=== PATIENT | male | born 1955 | race Caucasian/White ===

== ENCOUNTER 2019-05-18 11:43 | Emergency (ER) | payer OTHER ==
[2019-05-18 11:49] VITALS: BMI 34.7
--- NOTE | 2019-05-18 13:10 | PDOC ---
History of Present Illness - General History Source: Patient Exam Limitations: No Limitations - History of Present Illness Initial Comments: 05/18/19 13:06 Pt is a 63 y/o male who presents to the ED with complaint of b/l leg swelling that has been ongoing for the last 3 years. The patient states that he is on a water pill and other heart medications. 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 Terry, in [place] whom he has not seen for about a year. He states that he also has swelling on his abdomen. He denies any shortness of breath. He has been urinating normally. The patient states that he is concerned about his leg swelling. He denies any chest pain or weakness. 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 He denies any other complaints at this time. <Corinne Junior - Last Filed: 05/18/19 14:31> <Robert Tomas - Last Filed: 05/18/19 15:57> - General Chief Complaint: Edema Stated Complaint: LEG PAIN Time Seen by Provider: 05/18/19 12:11 Past History - Past Medical History COPD: No Diabetes: Yes HTN: Yes Hypercholesterolemia: Yes - Psycho Social/Smoking Cessation Hx Smoking History: Never smoked <Corinne Junior - Last Filed: 05/18/19 14:31> <Robert Tomas - Last Filed: 05/18/19 15:57> - Past Medical History Allergies/Adverse Reactions: Allergies Allergy/AdvReac Type Severity Reaction Status Date / Time No Known Allergies Allergy Verified 05/18/19 11:49 Home Medications: Ambulatory Orders Carvedilol 6.25 mg PO BID 05/18/19 Enalapril Maleate [Vasotec -] 10 mg PO DAILY 05/18/19 Furosemide 20 mg PO DAILY 05/18/19 Levothyroxine [Synthroid -] 25 mcg PO DAILY 05/18/19 Metformin HCl [Glucophage] 1,000 mg PO BID 05/18/19 Review of Systems - Review of Systems Constitutional: No: Chills, Fever, Malaise, Weakness Respiratory: No: Cough, Shortness of Breath, SOB at Rest, Wheezing, Productive cough, Hemoptysis Cardiac (ROS): Yes: Edema. No: Chest Pain, Irregular Heart Rate, Lightheadedness, Palpitations, Syncope, Chest Tightness ABD/GI: Yes: Other. No: Abdominal Distended, Nausea, Vomiting, Abdominal cramping : Yes: Testicular Swelling Musculoskeletal: No: Back Pain, Muscle Pain Integumentary: No: Change in Color, Erythema, Rash Neurological: No: Headache, Numbness, Tingling, Weakness <Sandi,Corinne D - Last Filed: 05/18/19 14:31> *Physical Exam - Vital Signs Last Vital Signs Temp Pulse Resp BP Pulse Ox 98.2 F 100 H 18 175/107 H 98 05/18/19 11:45 05/18/19 11:45 05/18/19 11:45 05/18/19 11:45 05/18/19 11:45 - Physical Exam General Appearance: Yes: Appropriately Dressed, Obese. No: Apparent Distress HEENT: positive: EOMI Neck: negative: Decreased range of motion Respiratory/Chest: positive: Rales (Fine rales b/l bases). negative: Chest Tender, Respiratory Distress, Accessory Muscle Use, Labored Respiration, Decreased Breath Sounds, Rhonchi, Stridor, Wheezing Cardiovascular: positive: Regular Rhythm, Regular Rate, S1, S2, Edema (3+ pitting edema b/l LE, no calf tenderness) Gastrointestinal/Abdominal: positive: Normal Bowel Sounds, Soft, Other (2+ pitting edema lower abdomen consistent with anasarca). negative: Tender Musculoskeletal: positive: Normal Inspection. negative: Decreased Range of Motion Extremity: positive: Normal Capillary Refill Integumentary: positive: Normal Color, Dry, Warm Neurologic: positive: Fully Oriented, Alert, Normal Mood/Affect, Normal Response <Sandi,Corinne D - Last Filed: 05/18/19 14:31> - Vital Signs Last Vital Signs Temp Pulse Resp BP Pulse Ox 97.8 F 86 20 157/87 98 05/18/19 15:10 05/18/19 15:10 05/18/19 15:10 05/18/19 15:10 05/18/19 15:10 <Robert Tomas - Last Filed: 05/18/19 15:57> ED Treatment Course - LABORATORY CBC & Chemistry Diagram: 05/18/19 13:20 05/18/19 13:20 <Sandi,Corinne D - Last Filed: 05/18/19 14:31> - LABORATORY CBC & Chemistry Diagram: 05/18/19 13:20 05/18/19 13:20 - ADDITIONAL ORDERS Additional order review: Laboratory Results 05/18/19 13:20 Sodium 144 Potassium 4.2 Chloride 114 H Carbon Dioxide 24 Anion Gap 6 L BUN 21.1 H Creatinine 1.5 H Est GFR (CKD-EPI)AfAm 55.82 Est GFR (CKD-EPI)NonAf 48.16 Random Glucose 110 H Calcium 8.5 Total Bilirubin 0.9 AST 50 H ALT 35 Alkaline Phosphatase 173 H Total Protein 7.0 Albumin 2.9 L 05/18/19 13:20 RBC 4.27 MCV 90.4 MCHC 32.4 RDW 16.6 H MPV 9.2 Neutrophils % 70.4 Lymphocytes % 14.9 Monocytes % 9.9 Eosinophils % 3.7 Basophils % 1.1 <Robert Tomas - Last Filed: 05/18/19 15:57> Medical Decision Making - Medical Decision Making 05/18/19 14:32 Pt is a 63 y/o male with fluid overload and likely CHF. The patient is already on furosemide and he has been instructed to double the furosemide for the next 3 days. If he has any weakness of dizziness he can go back down to his normal dose. We will refer the patient to cardiology in the area as opposed to [place]. He has been given strict return precautions. The patient and his understands and agree with this treatment and plan. <Corinne Junior - Last Filed: 05/18/19 14:31> - Medical Decision Making 05/18/19 15:57 I reviewed the case of the mid-level practitioner and was available for consultation while in the emergency department <Robert Tomas - Last Filed: 05/18/19 15:57> Discharge - Discharge Information Problems reviewed: Yes <Corinne Junior - Last Filed: 05/18/19 14:31> <Robert Tomas - Last Filed: 05/18/19 15:57> - Discharge Information Clinical Impression/Diagnosis: Pedal edema Fluid overload Qualifiers: Hypervolemia type: other Qualified Code(s): E87.79 - Other fluid overload Condition: Stable Disposition: HOME - Follow up/Referral Referrals: Kody Gandara MD [Staff Physician] - - Patient Discharge Instructions Patient Printed Discharge Instructions: Heart Failure Additional Instructions: You should follow up with Dr. Gandara (cardiology) as soon as possible. Call the office today to make an appointment. You should take double your dose of your furosemide (Lasix) medication for the next 3 days only. This should help with the fluid overload. Be sure to stop increasing your medication if you get dizzy, feel chest pain, feel short of breath or any other concerning symptoms. Return to the ED for any worsening symptoms such as chest pain, dizziness, fainting, shortness of breath or any other concerning symptoms. The patient and his understand and agrees with treatment and plan. - Post Discharge Activity Work/Back to School Note: Back to Work
[2019-05-18 13:45] LABS: BASO % 1.1 % (0-2.0); EOS % 3.7 % (0-4.5); HEMATOCRIT 38.6 % (35.4-49); HEMOGLOBIN 12.5 GM/dL (11.7-16.9); LYMPH % 14.9 % (8-40); MCH 29.3 pg (25.7-33.7); MCHC 32.4 g/dl (32.0-35.9); MEAN CELL VOLUME 90.4 fl (80-96); MEAN PLT VOLUME 9.2 fl (7.5-11.1); MONO % 9.9 % (3.8-10.2); NEUT % 70.4 % (42.8-82.8); PLATELET COUNT 201 K/MM3 (134-434); RBC 4.27 M/mm3 (4.00-5.60); RDW 16.6 % (11.9-15.9); WHITE BLOOD COUNT 5.9 K/mm3 (4.0-10.0)
[2019-05-18 14:00] LABS: ALBUMIN 2.9 g/dl (3.4-5.0); BILIRUBIN,TOTAL 0.9 mg/dL (0.2-1); BLOOD UREA NITROGEN 21.1 mg/dL (7-18); CALCIUM 8.5 mg/dL (8.5-10.1); CREATININE 1.5 mg/dL (0.55-1.3); POTASSIUM 4.2 mmol/L (3.5-5.1)
--- NOTE | 2019-05-18 15:14 | PDOC ---
*Physical Exam - Vital Signs Last Vital Signs Temp Pulse Resp BP Pulse Ox 98.2 F 100 H 18 175/107 H 97 05/18/19 11:45 05/18/19 11:45 05/18/19 11:45 05/18/19 11:45 05/18/19 12:30 ED Treatment Course - LABORATORY CBC & Chemistry Diagram: 05/18/19 13:20 05/18/19 13:20 - ADDITIONAL ORDERS Additional order review: Laboratory Results 05/18/19 13:20 Sodium 144 Potassium 4.2 Chloride 114 H Carbon Dioxide 24 Anion Gap 6 L BUN 21.1 H Creatinine 1.5 H Est GFR (CKD-EPI)AfAm 55.82 Est GFR (CKD-EPI)NonAf 48.16 Random Glucose 110 H Calcium 8.5 Total Bilirubin 0.9 AST 50 H ALT 35 Alkaline Phosphatase 173 H Total Protein 7.0 Albumin 2.9 L 05/18/19 13:20 RBC 4.27 MCV 90.4 MCHC 32.4 RDW 16.6 H MPV 9.2 Neutrophils % 70.4 Lymphocytes % 14.9 Monocytes % 9.9 Eosinophils % 3.7 Basophils % 1.1 Discharge - Discharge Information Problems reviewed: Yes Clinical Impression/Diagnosis: Pedal edema Fluid overload Qualifiers: Hypervolemia type: other Qualified Code(s): E87.79 - Other fluid overload Condition: Stable Disposition: HOME - Follow up/Referral Referrals: Kody Gandara MD [Staff Physician] - - Patient Discharge Instructions Patient Printed Discharge Instructions: Heart Failure Additional Instructions: You should follow up with Dr. Gandara (cardiology) as soon as possible. Call the office today to make an appointment. You should take double your dose of your furosemide (Lasix) medication for the next 3 days only. This should help with the fluid overload. Be sure to stop increasing your medication if you get dizzy, feel chest pain, feel short of breath or any other concerning symptoms. Return to the ED for any worsening symptoms such as chest pain, dizziness, fainting, shortness of breath or any other concerning symptoms. The patient and his understand and agrees with treatment and plan. - Post Discharge Activity Work/Back to School Note: Back to Work
[2019-05-18 15:18] VITALS: BP 157/87; PULSE 86; TEMP 97.8
== END 2019-05-18 15:10 | disposition home or self-care (01) ==
LOC: JER 11:43
DX: E87.70 Fluid overload, unspecified (principal); I10 Essential (primary) hypertension; E11.9 Type 2 diabetes mellitus without complications; Z79.84 Long term (current) use of oral hypoglycemic drugs; E78.00 Pure hypercholesterolemia, unspecified
CPT/HCPCS: 36415; 80053; 85025; 99283-25

== ENCOUNTER 2019-05-21 08:30 | Inpatient (IN) | payer OTHER ==
--- NOTE | 2019-05-21 08:35 | PDOC ---
History of Present Illness - General Chief Complaint: Edema Stated Complaint: EDEMA Time Seen by Provider: 05/21/19 08:34 History Source: Patient Exam Limitations: No Limitations - History of Present Illness Initial Comments: 05/21/19 08:37 63yM w PMHx CHF, NIDDM, HTN, HLD presenting w testicular edema. Progressively worsening testicular edema for past 2 weeks. Associated AB distension, SOB w exertion for past year, non productive cough past 2weeks. Was seen on 05/18/19 for BLE edema, doubled lasix dose from 20 to 40 daily for 3d and arranged f/u w local quality assurance advisor Dr Gandara tomorrow. Did not take any meds today. Denies fever, nausea/vomiting, chest pain/tightness, dysuria, scrotal tenderness, diarrhea/constipation. PCP Dr Heredia Past History - Past Medical History Allergies/Adverse Reactions: Allergies Allergy/AdvReac Type Severity Reaction Status Date / Time No Known Allergies Allergy Verified 05/21/19 08:58 Home Medications: Ambulatory Orders Enalapril Maleate [Vasotec -] 10 mg PO DAILY 05/18/19 Furosemide 20 mg PO TID 05/18/19 Levothyroxine [Synthroid -] 25 mcg PO DAILY 05/18/19 Metformin HCl [Glucophage] 1,000 mg PO BID 05/18/19 Aspirin [ASA -] 81 mg PO DAILY 05/21/19 Carvedilol 6.25 mg PO BID 05/21/19 COPD: No Diabetes: Yes HTN: Yes Hypercholesterolemia: Yes - Psycho Social/Smoking Cessation Hx Smoking History: Never smoked Review of Systems - Review of Systems Constitutional: No: Chills, Fever HEENTM: No: Eye Pain, Nose Pain, Nose Congestion, Throat Pain, Mouth Pain Respiratory: Yes: Cough, SOB with Exertion Cardiac (ROS): No: Chest Pain, Palpitations, Syncope ABD/GI: Yes: Abdominal Distended. No: Constipated, Diarrhea, Nausea, Vomiting : Yes: Testicular Swelling. No: Dysuria, Discharge, Hematuria Musculoskeletal: No: Back Pain, Joint Pain Integumentary: No: Bruising, Flushing, Lesions Neurological: No: Headache, Seizure, Tingling Psychiatric: No: Anxiety, Depression, Frequent Crying Endocrine: No: Excessive Sweating, Flushing, Intolerance to Cold, Intolerance to Heat Hematologic/Lymphatic: No: Anemia, Blood Clots *Physical Exam - Physical Exam General Appearance: Yes: Nourished, Appropriately Dressed. No: Apparent Distress HEENT: positive: EOMI, YOKO, Hearing Grossly Normal. negative: Scleral Icterus (R), Scleral Icterus (L), Rhinorrhea Respiratory/Chest: positive: Crackles (lenore basilar). negative: Chest Tender, Rhonchi, Stridor, Wheezing Cardiovascular: positive: Regular Rhythm, Regular Rate, S1, S2, Systolic Murmur Gastrointestinal/Abdominal: positive: Normal Bowel Sounds, Flat, Distended (mild ). negative: Tender, Organomegaly, Guarding, Rebound Male Genitalia: positive: other (13cm swollen scrotum, no rash/erythema). negative: testicular mass, epididymus tender, hernia Extremity: positive: Swelling (3+ pitting edema to thighs lenore) Integumentary: positive: Normal Color. negative: Rash Neurologic: positive: Fully Oriented, Alert, Normal Response, Responsive. negative: Sensory Deficit, Confused, Disoriented ED Treatment Course - LABORATORY CBC & Chemistry Diagram: 05/21/19 09:00 05/21/19 09:00 Medical Decision Making - Medical Decision Making 05/21/19 09:09 EKG NSR, L axis deviation, HR 88, prolonged QTc 500, no ST changes CXR shows pulm vascular congestion, cardiomegaly, small lenore basilar effusions Testicular US showed extensive scrotal edema, no acute pathology Cr 1.6, trop 0.21, BNP 6900 --- 63yM w PMHx CHF, NIDDM, HTN, HLD presenting w progressive worsening 2wk testicular edema d/t CHF exacerbation (BLE swelling, elevated BNP 6900). Also has CIARA w 3+ protein suggesting nephrotic process. Low concern for ACS (NSR EKG , no chest pain) vs PNA (no consolidation) vs UTI (no infection on UA). Testicular US showed extensive scrotal edema, no acute pathology. Elevated trop 0.21 may be d/t increased cardiac demand from fluid overload. Hypertensive 170/ 109 d/t medication non compliance. Given 20 IV lasix, enalapril, carvedilol for hypertension Consulted Dr Del Cid cardiology elevated trop/CHF - advised to trend trop, give lasix, agrees w plan to admit Admitted tele Dr Nsheiwat for CHF exacerbation, CIARA, hypertension Discharge - Discharge Information Problems reviewed: Yes Clinical Impression/Diagnosis: CIARA (acute kidney injury) CHF exacerbation Qualifiers: Heart failure type: unspecified Qualified Code(s): I50.9 - Heart failure, unspecified Hypertension Qualifiers: Hypertension type: essential hypertension Qualified Code(s): I10 - Essential ( primary) hypertension Condition: Fair - Follow up/Referral Referrals: Denny Heredia MD [Primary Care Provider] - - Patient Discharge Instructions - Post Discharge Activity
[2019-05-21 08:56] VITALS: BMI 33.9
[2019-05-21] MEDS ORDERED: FUROSEMIDE 40 MG/4 ML INJECTABLE VIAL IVPUSH ONE (09:08)
[2019-05-21] MEDS ORDERED: CARVEDILOL 6.25 MG TABLET (FP) PO ONE (09:11)
[2019-05-21] MEDS ORDERED: ENALAPRIL MALEATE 10 MG TABLET (FP) PO SCH (09:15)
[2019-05-21 09:17] LABS: BASO % 1.3 % (0-2.0); EOS % 3.2 % (0-4.5); HEMATOCRIT 39.9 % (35.4-49); MCH 29.3 pg (25.7-33.7); MCHC 32.6 g/dl (32.0-35.9); MEAN CELL VOLUME 90.1 fl (80-96); MEAN PLT VOLUME 9.2 fl (7.5-11.1); MONO % 9.8 % (3.8-10.2); NEUT % 67.7 % (42.8-82.8); PLATELET COUNT 224 K/MM3 (134-434); RBC 4.43 M/mm3 (4.00-5.60); RDW 16.1 % (11.9-15.9); WHITE BLOOD COUNT 6.7 K/mm3 (4.0-10.0)
[2019-05-21] MEDS ORDERED: CARVEDILOL 3.125 MG TABLET (FP) ONE (09:22)
[2019-05-21] MEDS ORDERED: FUROSEMIDE 40 MG/4 ML INJECTABLE VIAL ONE ×2 (09:22→14:49)
[2019-05-21] MEDS ORDERED: ENALAPRIL MALEATE 5 MG TABLET (FP) ONE (09:22)
--- NOTE | 2019-05-21 09:29 | PDOC ---
Attending Attestation - Resident Resident Name: Shoaib Guzman - ED Attending Attestation I have performed the following: I have examined & evaluated the patient, The case was reviewed & discussed with the resident, I agree w/resident's findings & plan, Exceptions are as noted - HPI HPI: 05/21/19 09:29 63 M with h/o DM, HTN, HLD, CHF presenting with swelling to legs and scrotum. Pt reports 2 weeks of worsening edema extending from his BLE to his scrotum. Endorses some mild abdominal distension as well. Denies CP. Endorses QUINTANILLA and dry cough. Pt is taking lasix as prescribed. - Physicial Exam PE: 05/21/19 09:31 "GENERAL: Awake, alert, and fully oriented, in no acute distress. HEAD: No signs of trauma EYES: PERRLA, EOMI, sclera anicteric, conjunctiva clear ENT: Auricles normal inspection, hearing grossly normal, nares patent, oropharynx clear without exudates. Moist mucosa NECK: Nontender, no stepoffs, Normal ROM, supple, no lymphadenopathy, JVD, or masses LUNGS: Breath sounds equal, clear to auscultation bilaterally. No wheezes, and no crackles HEART: Regular rate and rhythm, normal S1 and S2, no murmurs, rubs or gallops ABDOMEN: Soft, nontender, normoactive bowel sounds. No guarding, no rebound. No masses EXTREMITIES: + 3+ BLE PE NEUROLOGICAL: Cranial nerves II through XII intact. 5/5 strength and sensation in all extremities, Normal speech, normal gait, normal cerebellar function SKIN: Warm, Dry, normal turgor, no rashes or lesions noted. - Medical Decision Making 05/21/19 09:31 63 M with anasarca, likely volume overload 2/2 poorly managed CHF. - Labs, BNP - CXR - IV lasix - Admit
[2019-05-21 09:42] LABS: BILIRUBIN,TOTAL 0.8 mg/dL (0.2-1); BLOOD UREA NITROGEN 33.1 mg/dL (7-18); CALCIUM 8.4 mg/dL (8.5-10.1); CREATININE 1.6 mg/dL (0.55-1.3); POTASSIUM 4.3 mmol/L (3.5-5.1); TOT PROT 6.9 g/dl (6.4-8.2)
[2019-05-21] MEDS ORDERED: ASPIRIN 325 MG TABLET PO ONE (09:50)
[2019-05-21 11:06] LABS: EPI CELLS 0.4 /HPF (0-5/HPF); HYALINE CASTS 2 /lpf (0-8); URINE APPEARANCE CLEAR; URINE BACTERIA 0.8 /hpf (NEGATIVE); URINE BILIRUBIN NEGATIVE (NEGATIVE); URINE COLOR YELLOW; URINE GLUCOSE (UA) NEGATIVE (NEGATIVE); URINE KETONE NEGATIVE (NEGATIVE); URINE LEUK ESTERASE NEGATIVE (NEGATIVE); URINE NITRITE NEGATIVE (NEGATIVE); URINE PROTEIN 3+ (NEGATIVE); URINE RBC 1 /hpf (0-4); URINE WBC 1 /hpf (0-5)
--- NOTE | 2019-05-21 11:48 | CON.CARD ---
Cardiology Consult (text) - Consultation Consultation Note: cc: sob, le edema hpi: 63 m hx htn, dm, chf here with sob, le edema. Also with abd swelling and scrotal swelling. Sxs for past 1-2 weeks. No cp palps dizzy loc pnd orthopnea. 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 pmh: per hpi psh: none social: no tob fam: no premature cad, scd ros: per hpi; all others nl meds: Home Medications Medication Instructions Recorded Enalapril Maleate [Vasotec -] 10 mg PO DAILY 05/18/19 Furosemide 20 mg PO TID 05/18/19 Levothyroxine [Synthroid -] 25 mcg PO DAILY 05/18/19 Metformin HCl [Glucophage] 1,000 mg PO BID 05/18/19 Aspirin [ASA -] 81 mg PO DAILY 05/21/19 Carvedilol 6.25 mg PO BID 05/21/19 pe: Vital Signs Period Temp Pulse Resp BP Sys/Bhatti Pulse Ox Last 24 Hr 97.8 F-98.3 F 82-95 16-20 104-170/62-109 98-100 nad no jvd rrr s1s2 no mrg cta bl nl eff no jaundice diaphoresis pos dp pt no carotid bruits abd nt pos bs, +distended with abd wall edema 3+ le edema to thighs, no c/c aao3 Laboratory Last Values WBC 6.7 K/mm3 (4.0-10.0) 05/21/19 09:00 RBC 4.43 M/mm3 (4.00-5.60) 05/21/19 09:00 Hgb 13.0 GM/dL (11.7-16.9) 05/21/19 09:00 Hct 39.9 % (35.4-49) 05/21/19 09:00 MCV 90.1 fl (80-96) 05/21/19 09:00 MCH 29.3 pg (25.7-33.7) 05/21/19 09:00 MCHC 32.6 g/dl (32.0-35.9) 05/21/19 09:00 RDW 16.1 % (11.9-15.9) H 05/21/19 09:00 Plt Count 224 K/MM3 (134-434) 05/21/19 09:00 MPV 9.2 fl (7.5-11.1) 05/21/19 09:00 Absolute Neuts (auto) 4.5 K/mm3 (1.5-8.0) 05/21/19 09:00 Neutrophils % 67.7 % (42.8-82.8) 05/21/19 09:00 Lymphocytes % 18.0 % (8-40) D 05/21/19 09:00 Monocytes % 9.8 % (3.8-10.2) 05/21/19 09:00 Eosinophils % 3.2 % (0-4.5) 05/21/19 09:00 Basophils % 1.3 % (0-2.0) 05/21/19 09:00 Nucleated RBC % 0 % (0-0) 05/21/19 09:00 Sodium 138 mmol/L (136-145) 05/21/19 09:00 Potassium 4.3 mmol/L (3.5-5.1) 05/21/19 09:00 Chloride 106 mmol/L (98-107) 05/21/19 09:00 Carbon Dioxide 24 mmol/L (21-32) 05/21/19 09:00 Anion Gap 8 MMOL/L (8-16) 05/21/19 09:00 BUN 33.1 mg/dL (7-18) H 05/21/19 09:00 Creatinine 1.6 mg/dL (0.55-1.3) H 05/21/19 09:00 Est GFR (CKD-EPI)AfAm 51.63 05/21/19 09:00 Est GFR (CKD-EPI)NonAf 44.55 05/21/19 09:00 Random Glucose 139 mg/dL (74-106) H 05/21/19 09:00 Calcium 8.4 mg/dL (8.5-10.1) L 05/21/19 09:00 Total Bilirubin 0.8 mg/dL (0.2-1) 05/21/19 09:00 AST 57 U/L (15-37) H 05/21/19 09:00 ALT 36 U/L (13-61) 05/21/19 09:00 Alkaline Phosphatase 172 U/L (45-117) H 05/21/19 09:00 Troponin I 0.21 ng/ml (0.00-0.05) H 05/21/19 09:00 B-Natriuretic Peptide 6982.8 pg/ml (5-125) H 05/21/19 09:00 Total Protein 6.9 g/dl (6.4-8.2) 05/21/19 09:00 Albumin 3.0 g/dl (3.4-5.0) L 05/21/19 09:00 Urine Color Yellow 05/21/19 10:30 Urine Appearance Clear 05/21/19 10:30 Urine pH 5.0 (5.0-8.0) 05/21/19 10:30 Ur Specific [place] 1.011 (1.010-1.035) 05/21/19 10:30 Urine Protein 3+ (NEGATIVE) H 05/21/19 10:30 Urine Glucose (UA) Negative (NEGATIVE) 05/21/19 10:30 Urine Ketones Negative (NEGATIVE) 05/21/19 10:30 Urine Blood 1+ (NEGATIVE) H 05/21/19 10:30 Urine Nitrite Negative (NEGATIVE) 05/21/19 10:30 Urine Bilirubin Negative (NEGATIVE) 05/21/19 10:30 Urine Urobilinogen 1.0 mg/dL (0.2-1.0) 05/21/19 10:30 Ur Leukocyte Esterase Negative (NEGATIVE) 05/21/19 10:30 Urine WBC (Auto) 1 /hpf (0-5) 05/21/19 10:30 Urine RBC (Auto) 1 /hpf (0-4) 05/21/19 10:30 Urine Casts (Auto) 2 /lpf (0-8) 05/21/19 10:30 U Epithel Cells (Auto) 0.4 /HPF (0-5/HPF) 05/21/19 10:30 Urine Bacteria (Auto) 0.8 /hpf (NEGATIVE) 05/21/19 10:30 cxr: mild congestion ecg: sr, no ischemic changes a/p: 63 m hx htn, dm, chf here with sob, le edema. acute on chronic chf: -check echo to see lvef -pt with substantial le, scrotal, abdominal wall edema -pt was on lasix 40 po qd at home, cont iv lasix here, 40 iv bid to start, monitor daily wts, daily chem7 -no signs acs htn: -cont home coreg, lizzie-i dm: -manage per primary elevated trop: -borderline trop elevation, likely not acs, trend for now, monitor on tele mando: -no baseline available, could be ckd vs cardiorenal. monitor with diuresis.
[2019-05-21] MEDS ORDERED: ASPIRIN 81 MG CHEWABLE TABLETS ONE (11:52)
--- NOTE | 2019-05-21 11:56 | HP ---
CHIEF COMPLAINT: diffuse swelling PCP: HISTORY OF PRESENT ILLNESS: Patient is a 63 year old male with history of hypertension, diabetes mellitus ( non insulin dependent), hypothyroidism, presents with complaint of swelling to the lower extremities, scrotum, and abdomen. Patient endorses the lower extremity edema is chronic, however has progressed over the past two weeks with new onset swelling of the scrotum, and abdomen. Patient was seen at [facility] this week for these symptoms, and was told to double his dosage of Furosemide (from 20mg to 40mg), and was provided Cardiology follow up. Patient admits compliance with his daily Furosemide, however endorses that the swelling has continued to progress, prompting presentaiton to Emergency Department. Patient believes he may have had a stress test approx 5 years ago, however does not recall the result. He has not recently followed up with a stucco applicator. He denies subjective fevers, chills, shortness of breath, chest pain, palpitations , abdominal pain, nausea, vomiting, dysuria, hematuria, change in urinary stream , dyschezia, hematochezia, melena. 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 Lives in home with and child. Independent in activities of daily living. Smoking: denies smoking cigarettes Alcohol: endorses one beer on occasion, last drink over one week ago. Drugs: denies illicit drug use Allergies No Known Allergies Allergy (Verified 05/21/19 08:58) HOME MEDICATIONS: Home Medications Medication Instructions Recorded Enalapril Maleate [Vasotec -] 10 mg PO DAILY 05/18/19 Furosemide 20 mg PO TID 05/18/19 Levothyroxine [Synthroid -] 25 mcg PO DAILY 05/18/19 Metformin HCl [Glucophage] 1,000 mg PO BID 05/18/19 Aspirin [ASA -] 81 mg PO DAILY 05/21/19 Carvedilol 6.25 mg PO BID 05/21/19 REVIEW OF SYSTEMS CONSTITUTIONAL: Absent: fever, chills, diaphoresis, generalized weakness, malaise, loss of appetite, weight change HEENT: Absent: rhinorrhea, nasal congestion, throat pain, throat swelling, difficulty swallowing, mouth swelling, ear pain, eye pain, visual changes CARDIOVASCULAR: Admits: peripheral edema. Absent: chest pain, syncope, palpitations, irregular heart rate, lightheadedness. RESPIRATORY: Absent: cough, shortness of breath, dyspnea with exertion, orthopnea, wheezing, stridor, hemoptysis GASTROINTESTINAL: Admits: abdominal distension. Absent: abdominal pain, nausea, vomiting, diarrhea, constipation, melena, hematochezia GENITOURINARY: Admits: scrotal swelling. Absent: dysuria, frequency, urgency, hesitancy, hematuria, flank pain, genital pain MUSCULOSKELETAL: Absent: myalgia, arthralgia, joint swelling, back pain, neck pain SKIN: Absent: rash, itching, pallor HEMATOLOGIC/IMMUNOLOGIC: Absent: easy bleeding, easy bruising, lymphadenopathy, frequent infections ENDOCRINE: Absent: unexplained weight gain, unexplained weight loss, heat intolerance, cold intolerance NEUROLOGIC: Absent: headache, focal weakness or paresthesias, dizziness, unsteady gait, seizure, mental status changes, bladder or bowel incontinence PSYCHIATRIC: Absent: anxiety, depression, suicidal or homicidal ideation, hallucinations. PHYSICAL EXAMINATION Vital Signs - 24 hr 05/21/19 05/21/19 05/21/19 08:30 08:51 09:35 Temperature 98.3 F 97.8 F Pulse Rate 88 95 H Pulse Rate [ Left Radial] Respiratory 16 20 Rate Blood Pressure 104/62 170/109 H Blood Pressure [Left Arm] O2 Sat by Pulse 100 98 98 Oximetry (%) 05/21/19 10:00 Temperature Pulse Rate Pulse Rate [ 82 Left Radial] Respiratory 20 Rate Blood Pressure Blood Pressure 158/92 [Left Arm] O2 Sat by Pulse 98 Oximetry (%) GENERAL: The patient is awake, alert, and fully oriented, in no acute distress. HEAD: Normocephalic, atraumatic. EYES: PERRL, extraocular movements intact, sclera anicteric, conjunctiva clear. ENT: Oropharynx clear, without erythema or exudates. Moist mucous membranes. NECK: Trachea midline, full range of motion. Supple without lymphadenopathy. Positive JVD. LUNGS: Breath sounds equal, clear to auscultation bilaterally, no wheezes, no crackles. No accessory muscle use. HEART: Regular rate and rhythm, S1, S2 without murmur, rub or gallop. ABDOMEN: Tenseley distended. Nontender to light and deep palpation x4 quadrants , no rebound tenderness, no guarding. Normoactive bowel sounds x4 quadrants. Negative caput medusae. Shifting dullness to percussion. GENITAL: Diffuse edema of scrotum. No testicular masses palpable Negative tenderness to palpation. EXTREMITIES: 2+ radial, dorsalis pedis pulses bilaterally. Warm, well-perfused. Tense edema bilateral lower extremities. NEUROLOGICAL: Cranial nerves II through XII grossly intact. Normal speech. No gross focal deficits. PSYCH: Normal mood, normal affect upon my encounter. SKIN: Warm, dry. Negative jaundice. Positive acanthosis nigricans at posterior neck. Laboratory Results - last 24 hr 05/21/19 05/21/19 05/21/19 09:00 09:00 09:00 WBC 6.7 RBC 4.43 Hgb 13.0 Hct 39.9 MCV 90.1 MCH 29.3 MCHC 32.6 RDW 16.1 H Plt Count 224 MPV 9.2 Absolute Neuts (auto) 4.5 Neutrophils % 67.7 Lymphocytes % 18.0 D Monocytes % 9.8 Eosinophils % 3.2 Basophils % 1.3 Nucleated RBC % 0 Sodium 138 Potassium 4.3 Chloride 106 Carbon Dioxide 24 Anion Gap 8 BUN 33.1 H Creatinine 1.6 H Est GFR (CKD-EPI)AfAm 51.63 Est GFR (CKD-EPI)NonAf 44.55 Random Glucose 139 H Calcium 8.4 L Total Bilirubin 0.8 AST 57 H ALT 36 Alkaline Phosphatase 172 H Troponin I 0.21 H B-Natriuretic Peptide 6982.8 H Total Protein 6.9 Albumin 3.0 L Urine Color Urine Appearance Urine pH Ur Specific [place] Urine Protein Urine Glucose (UA) Urine Ketones Urine Blood Urine Nitrite Urine Bilirubin Urine Urobilinogen Ur Leukocyte Esterase Urine WBC (Auto) Urine RBC (Auto) Urine Casts (Auto) U Epithel Cells (Auto) Urine Bacteria (Auto) 05/21/19 10:30 WBC RBC Hgb Hct MCV MCH MCHC RDW Plt Count MPV Absolute Neuts (auto) Neutrophils % Lymphocytes % Monocytes % Eosinophils % Basophils % Nucleated RBC % Sodium Potassium Chloride Carbon Dioxide Anion Gap BUN Creatinine Est GFR (CKD-EPI)AfAm Est GFR (CKD-EPI)NonAf Random Glucose Calcium Total Bilirubin AST ALT Alkaline Phosphatase Troponin I B-Natriuretic Peptide Total Protein Albumin Urine Color Yellow Urine Appearance Clear Urine pH 5.0 Ur Specific [place] 1.011 Urine Protein 3+ H Urine Glucose (UA) Negative Urine Ketones Negative Urine Blood 1+ H Urine Nitrite Negative Urine Bilirubin Negative Urine Urobilinogen 1.0 Ur Leukocyte Esterase Negative Urine WBC (Auto) 1 Urine RBC (Auto) 1 Urine Casts (Auto) 2 U Epithel Cells (Auto) 0.4 Urine Bacteria (Auto) 0.8 ASSESSMENT/PLAN: Patient is a 63 year old male with history of hypertension, diabetes mellitus ( non insulin dependent), hypothyroidism, presents with complaint of swelling to the lower extremities, scrotum, and abdomen. Anasarca -Likely acute on chronic edema from underlying congestive heart failure/ BNP 6982 (no proior for comparrison). Furhter, noted proteinuria 3+ within urinalysis concerning for contributory nephrotic syndrome. -Cardiac transthoracic ECHO -Right upper quadrant abdominal ultrasound to evaluate for hepatic congestion, pathology. -Hepatitis A/B/C studies -Diuresis with Lasix 40mg IV BID -Daily weights -Strict intake, output -Fluid restriciton 1L/ 24 hours -Sodium restriction diet -Cardiology evaluation (Dr. Del Cid) appreciated CIARA on CKD -BUN 33/ Cr 1.6 -Obtain renal ultrasound -Urine electrolytes -Monitor Creatinine with diuresis Hypertension -Continue home enalapril, Carvedilol Diabetes mellitus -Follow up HbA1c -Holding home Metformin. Insulin sliding scale ACHS -Fingerstick blood glucose monitoring ACHS Hypothyroid -Continue home Synthroid FEN -No IV fluids indicated. 1L fluid restriction/ 24 hours -Follow BMP, replete as necessary -Sodium restricted diet, diabetic modification Prophylaxis -Heparin 5000units subq TID Disposition -Admit to Telemetry floor. Visit type - Emergency Visit Emergency Visit: Yes ED Registration Date: 05/21/19 Care time: The patient presented to the Emergency Department on the above date and was hospitalized for further evaluation of their emergent condition. - New Patient This patient is new to me today: Yes Date on this admission: 05/21/19 - Critical Care Critical Care patient: No ATTENDING PHYSICIAN STATEMENT I saw and evaluated the patient. I reviewed the resident's note and discussed the case with the resident. I agree with the resident's findings and plan as documented. SUBJECTIVE: OBJECTIVE: ASSESSMENT AND PLAN:
--- NOTE | 2019-05-21 14:22 | ECHO ---
Name: NENA, DIONNE D Exam:Adult Echocardiogram Study Date: 05/21/2019 12:22 PM Age: 63 yrs Height: 72 in Weight: 250 lb BSA: 2.3 m2 MMode/2D Measurements & Calculations IVSd: 1.1 cm Ao root diam: 3.3 cm LVIDd: 4.9 cm LA dimension: 5.4 cm LVIDs: 3.3 cm LVPWd: 1.4 cm LVPWs: 1.9 cm EDV(Teich): 113.2 ml ESV(Teich): 43.6 ml LVOT diam: 2.2 cm LAV (MOD-bp): 83.8 ml TAPSE: 2.2 cm RV S Richard: 7.9 cm/sec Doppler Measurements & Calculations MV E max richard: 50.9 cm/sec Ao V2 max: 107.3 cm/sec MV A max richard: 28.1 cm/sec Ao max P.6 mmHg MV E/A: 1.8 ADITYA(V,D): 2.7 cm2 MV dec time: 0.17 sec LV V1 max P.2 mmHg TR max richard: 248.5 cm/sec LV V1 max: 74.4 cm/sec TR max P.9 mmHg PA V2 max: 93.7 cm/sec Med Peak E' Richard: 5.3 cm/sec PA max P.5 mmHg Med E/e': 9.5 Lat Peak E' Richard: 7.6 cm/sec Lat E/e': 6.7 Procedure A complete two-dimensional transthoracic echocardiogram was performed (2D, M-mode, Doppler and color flow Doppler). Left Ventricle There is mild concentric left ventricular hypertrophy. Left ventricular systolic function is moderate ly reduced. Ejection Fraction = 40-45%. There is moderate global hypokinesis of the left ventricle. Right Ventricle The right ventricle is mildly dilated. The right ventricular systolic function is mildly reduced. Atria The left atrium is moderately dilated. The right atrium is moderately dilated. Mitral Valve There is mild mitral regurgitation. Tricuspid Valve There is moderate tricuspid regurgitation. Right ventricular systolic pressure is normal. Aortic Valve No hemodynamically significant valvular aortic stenosis. No aortic regurgitation is present. Pulmonic Valve Mild pulmonic valvular regurgitation. Great Vessels The aortic root is normal size. Pericardium/Pleura There is no pericardial effusion. Interpretation Summary There is mild concentric left ventricular hypertrophy. Left ventricular systolic function is moderately reduced. The right ventricle is mildly dilated. The right ventricular systolic function is mildly reduced. The left atrium is moderately dilated. The right atrium is moderately dilated. There is mild mitral regurgitation. There is moderate tricuspid regurgitation. Mild pulmonic valvular regurgitation. MD Robert Del Cid 05/21/2019 02:22 PM
[2019-05-21] MEDS ORDERED: HEPARIN NA (PORCINE) 5,000 UNITS/ML 1ML VIAL ONE (14:48)
[2019-05-21] MEDS: HEPARIN NA (PORCINE) 5,000 UNITS/ML 1ML VIAL SQ SCH ×2 (15:03→21:13)
[2019-05-21] MEDS: FUROSEMIDE 40 MG/4 ML INJECTABLE VIAL IVPUSH SCH (15:04)
--- NOTE | 2019-05-21 16:52 | PN ---
Progress Note (short form) - Note Progress Note: 63 M h/o morbid obesity, HTN, T2DM (non insulin dependent), hypothyroidism, presents with complaint of swelling to the lower extremities, scrotum, and abdomen. Patient endorses swelling gradually increased over the course of weeks, associated w/ trouble ambulating and some SOB on exertion. 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 patient was recently seen in ED for similar CC where he was given Lasix and told to follow w/ cardiology. patient endorses now worsening LE edema w/ worsening scrotal swelling, denies urinary complaints , denies associated CP/syncope/LOC but has some SOB. GENERAL: The patient is awake, alert, and fully oriented, in no acute distress. HEAD: Normocephalic, atraumatic. EYES: PERRL, extraocular movements intact, sclera anicteric, conjunctiva clear. ENT: Oropharynx clear, without erythema or exudates. Moist mucous membranes. NECK: Trachea midline, full range of motion. Supple without lymphadenopathy. Positive JVD. LUNGS: Breath sounds equal, clear to auscultation bilaterally, no wheezes, no crackles. No accessory muscle use. HEART: Regular rate and rhythm, S1, S2 without murmur, rub or gallop. ABDOMEN: tensely distended. Non-tender to light and deep palpation x4 quadrants , no rebound tenderness, no guarding. Normoactive bowel sounds x4 quadrants. Negative caput medusae. Shifting dullness to percussion. GENITAL: Diffuse edema of scrotum. No testicular masses palpable Negative tenderness to palpation. EXTREMITIES: 2+ radial, dorsalis pedis pulses bilaterally. Warm, well-perfused. Tense edema bilateral lower extremities. NEUROLOGICAL: Cranial nerves II through XII grossly intact. Normal speech. No gross focal deficits. PSYCH: Normal mood, normal affect upon my encounter. SKIN: Warm, dry. Negative jaundice. Positive acanthosis nigricans at posterior neck. Vital Signs - 24 hr 05/21/19 05/21/19 05/21/19 08:30 08:51 09:35 Temperature 98.3 F 97.8 F Pulse Rate 88 95 H Pulse Rate [ Left Radial] Respiratory 16 20 Rate Blood Pressure 104/62 170/109 H Blood Pressure [Left Arm] O2 Sat by Pulse 100 98 98 Oximetry (%) 05/21/19 05/21/19 10:00 15:00 Temperature 98.2 F Pulse Rate Pulse Rate [ 82 82 Left Radial] Respiratory 20 18 Rate Blood Pressure Blood Pressure 158/92 140/75 [Left Arm] O2 Sat by Pulse 98 98 Oximetry (%) Laboratory Results - last 24 hr 05/21/19 05/21/19 05/21/19 09:00 09:00 09:00 WBC 6.7 RBC 4.43 Hgb 13.0 Hct 39.9 MCV 90.1 MCH 29.3 MCHC 32.6 RDW 16.1 H Plt Count 224 MPV 9.2 Absolute Neuts (auto) 4.5 Neutrophils % 67.7 Lymphocytes % 18.0 D Monocytes % 9.8 Eosinophils % 3.2 Basophils % 1.3 Nucleated RBC % 0 Sodium 138 Potassium 4.3 Chloride 106 Carbon Dioxide 24 Anion Gap 8 BUN 33.1 H Creatinine 1.6 H Est GFR (CKD-EPI)AfAm 51.63 Est GFR (CKD-EPI)NonAf 44.55 Random Glucose 139 H Calcium 8.4 L Total Bilirubin 0.8 AST 57 H ALT 36 Alkaline Phosphatase 172 H Troponin I 0.21 H B-Natriuretic Peptide 6982.8 H Total Protein 6.9 Albumin 3.0 L Urine Color Urine Appearance Urine pH Ur Specific [place] Urine Protein Urine Glucose (UA) Urine Ketones Urine Blood Urine Nitrite Urine Bilirubin Urine Urobilinogen Ur Leukocyte Esterase Urine WBC (Auto) Urine RBC (Auto) Urine Casts (Auto) U Epithel Cells (Auto) Urine Bacteria (Auto) 05/21/19 05/21/19 10:30 14:40 WBC RBC Hgb Hct MCV MCH MCHC RDW Plt Count MPV Absolute Neuts (auto) Neutrophils % Lymphocytes % Monocytes % Eosinophils % Basophils % Nucleated RBC % Sodium Potassium Chloride Carbon Dioxide Anion Gap BUN Creatinine Est GFR (CKD-EPI)AfAm Est GFR (CKD-EPI)NonAf Random Glucose Calcium Total Bilirubin AST ALT Alkaline Phosphatase Troponin I 0.21 H B-Natriuretic Peptide Total Protein Albumin Urine Color Yellow Urine Appearance Clear Urine pH 5.0 Ur Specific [place] 1.011 Urine Protein 3+ H Urine Glucose (UA) Negative Urine Ketones Negative Urine Blood 1+ H Urine Nitrite Negative Urine Bilirubin Negative Urine Urobilinogen 1.0 Ur Leukocyte Esterase Negative Urine WBC (Auto) 1 Urine RBC (Auto) 1 Urine Casts (Auto) 2 U Epithel Cells (Auto) 0.4 Urine Bacteria (Auto) 0.8 Current Medications Generic Name Dose Route Start Last Admin Trade Name Liborio PRN Reason Stop Dose Admin Aspirin 81 mg 05/22/19 10:00 Asa - PO DAILY [facility] Carvedilol 6.25 mg 05/21/19 22:00 Coreg - PO BID [facility] Enalapril Maleate 10 mg 05/22/19 10:00 Vasotec - PO DAILY [facility] Furosemide 40 mg 05/21/19 14:00 05/21/19 15:04 Lasix Injection - IVPUSH 40 mg BID@0600,1400 [facility] Administration Heparin Sodium (Porcine) 5,000 unit 05/21/19 14:00 05/21/19 15:03 Heparin - SQ 5,000 unit TID [facility] Administration Insulin Aspart 1 vial 05/21/19 16:30 Novolog Vial Sliding Scale - SQ ACHS [facility] Protocol Levothyroxine Sodium 25 mcg 05/22/19 07:00 Synthroid - PO 0700 [facility] 63 M h/o morbid obesity, HTN, T2DM (non insulin dependent), hypothyroidism, presents with complaint of swelling to the lower extremities, scrotum, and abdomen suggestive of acute on chronic CHFE. Echo findings showing mildly reduced sytolic function of both LV and RV. Renal US concerning for new L renal mass (suspicious for RCC), urology and renal consulted for further evaluation. Diffuse LE anasarca multifactorial, possibly secondary to underlying decreased RV and LV function, v.s. impending ?cardiorenal, will trend Chem after diuresis to look for CRE function, 3+ proteinuria also noted on UA Lasix 40mg IV BID, monitor electrolytes closely w/ renal function Doppler negative for DVT LE b/l Cardio consult: Dr. Del Cid Troponemia Trops 0.21 repeat also 0.21, will cont. to trend Doubt ACS in absence of CP or EKG changes, will cont. to monitor on tele, Cardiology consult: Dr. Del Cid New L renal mass suspicious for RCC, also scrotal swelling may be caused by exophytic occupying mass, no signs of hydronephrosis however trend CRE function, monitor urine output Urology consult: Dr. Singletary Renal consult: Dr. Loza CIARA on CKD trend chem w/ IV diuresis, avoid nephrotoxins possibly cardiorenal v.s. nephrotic range proteinuria causing CIARA Renal consult: Dr Loza Hypertension Continue home enalapril, Carvedilol, monitor CRE, if CRE cont. to rise, DC Enalapril and increase BB PRN for BP control If renal function continues to decline, Send CIARA workup, urine albumin/ creatinine, urine electrolytes, SPEP, Hep b, Hep c T2DM Follow up HbA1c inpatient management of DM warrants ISS and supplement basal insulin PRN for F/ S 140-180 Fingerstick blood glucose monitoring ACHS Hypothyroid Continue home Synthroid FEN No IV fluids indicated. 1L fluid restriction/ 24 hours Follow BMP, replete as necessary Sodium restricted diet, diabetic modification DVT ppx: heparin SC Visit type - Emergency Visit Emergency Visit: Yes ED Registration Date: 05/21/19 Care time: The patient presented to the Emergency Department on the above date and was hospitalized for further evaluation of their emergent condition. - New Patient This patient is new to me today: No - Critical Care Critical Care patient: No
[2019-05-21] MEDS: INSULIN SLIDING SCALE (NOVOLOG) 1 VIAL SQ SCH ×2 (17:21→22:40)
--- NOTE | 2019-05-21 19:31 | CONSULT ---
Consult Consult Specialty:: Nephrology Reason for Consultation:: ciara and proteinuria - History of Present Illness Chief Complaint: lower ext edema History of Present Illness: Pt is a 63 year old male with pmhx of htn, dm, and hypothyroidism who presents to the ER complaining of lower ext edema, scrotal edema, and abd fullness. He says that he was on 20 mg of lasix as outpt for edema. It was increased to 40 mg and there was no improvement. He does not know why he has lower ext edema. He denies hx of chf. 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 He was also found to have a renal mass on his left kidney. He denies weight loss. He denies fever or chills. He denies hematuria or dysuria. He denies chest pain. - History Source History Provided By: Patient, Medical Record - Past Medical History Cardio/Vascular: Yes: HTN Endocrine: Yes: Diabetes Mellitus, Hypothyroidism - Alcohol/Substance Use Hx Alcohol Use: No - Smoking History Smoking history: Never smoked Have you smoked in the past 12 months: No Home Medications - Allergies Allergies/Adverse Reactions: Allergies Allergy/AdvReac Type Severity Reaction Status Date / Time No Known Allergies Allergy Verified 05/21/19 08:58 - Home Medications Home Medications: Ambulatory Orders Enalapril Maleate [Vasotec -] 10 mg PO DAILY 05/18/19 Furosemide 20 mg PO DAILY 05/18/19 Levothyroxine [Synthroid -] 25 mcg PO DAILY 05/18/19 Metformin HCl [Glucophage] 1,000 mg PO BID 05/18/19 Aspirin [ASA -] 81 mg PO DAILY 05/21/19 Carvedilol 6.25 mg PO BID 05/21/19 Family Medical History Family History: Denies Review of Systems - Review of Systems Constitutional: reports: Malaise Eyes: reports: No Symptoms HENT: reports: No Symptoms Neck: reports: No Symptoms Cardiovascular: reports: Edema, Shortness of Breath Respiratory: reports: SOB on Exertion Gastrointestinal: reports: Bloating, Other (abd fullness). denies: Abdominal Pain, Constipation, Diarrhea Genitourinary: reports: Other (scrotal edema) Musculoskeletal: reports: No Symptoms Integumentary: reports: No Symptoms Neurological: reports: No Symptoms Endocrine: reports: No Symptoms Hematology/Lymphatic: reports: No Symptoms Psychiatric: reports: No Symptoms Physical Exam Vital Signs: Vital Signs Temperature 98.2 F 05/21/19 17:39 Pulse Rate 88 05/21/19 17:39 Respiratory Rate 18 05/21/19 17:39 Blood Pressure 158/90 05/21/19 17:39 O2 Sat by Pulse Oximetry (%) 98 05/21/19 17:39 Constitutional: Yes: Calm Eyes: Yes: Conjunctiva Clear HENT: Yes: Atraumatic Cardiovascular: Yes: S1, S2 Respiratory: Yes: Rhonchi Gastrointestinal: Yes: Soft, Ascites, Distention, Other (abd wall edema) Renal/: Yes: Scrotal Edema. No: CVA Tenderness - Left, CVA Tenderness - Right Musculoskeletal: Yes: WNL Edema: Yes Edema: LLE: 3+, RLE: 3+ Integumentary: Yes: Venous Stasis Changes Neurological: Yes: Oriented Psychiatric: Yes: Oriented Labs: CBC, BMP 05/21/19 09:00 05/21/19 09:00 Laboratory Tests 05/21/19 05/21/19 05/21/19 09:00 09:00 10:30 WBC 6.7 Hgb 13.0 Plt Count 224 BUN 33.1 H Creatinine 1.6 H Urine Protein 3+ H Urine Blood 1+ H Imaging - Results Chest X-ray: Report Reviewed Ultrasound: Report Reviewed Problem List - Problems (1) Renal mass Code(s): N28.89 - OTHER SPECIFIED DISORDERS OF KIDNEY AND URETER (2) Proteinuria Code(s): R80.9 - PROTEINURIA, UNSPECIFIED (3) CIARA (acute kidney injury) Code(s): N17.9 - ACUTE KIDNEY FAILURE, UNSPECIFIED (4) CHF exacerbation Code(s): I50.9 - HEART FAILURE, UNSPECIFIED Qualifiers: Heart failure type: unspecified Qualified Code(s): I50.9 - Heart failure, unspecified (5) Hypertension Code(s): I10 - ESSENTIAL (PRIMARY) HYPERTENSION Qualifiers: Hypertension type: essential hypertension Qualified Code(s): I10 - Essential (primary) hypertension (6) Fluid overload Code(s): E87.70 - FLUID OVERLOAD, UNSPECIFIED Qualifiers: Hypervolemia type: other Qualified Code(s): E87.79 - Other fluid overload (7) Pedal edema Code(s): R60.0 - LOCALIZED EDEMA Assessment/Plan Current Medications Generic Name Dose Route Start Last Admin Trade Name Liborio PRN Reason Stop Dose Admin Aspirin 81 mg 05/22/19 10:00 Asa - PO DAILY [facility] Carvedilol 6.25 mg 05/21/19 22:00 Coreg - PO BID [facility] Enalapril Maleate 10 mg 05/22/19 10:00 Vasotec - PO DAILY [facility] Furosemide 40 mg 05/21/19 14:00 05/21/19 15:04 Lasix Injection - IVPUSH 40 mg BID@0600,1400 [facility] Administration Heparin Sodium (Porcine) 5,000 unit 05/21/19 14:00 05/21/19 15:03 Heparin - SQ 5,000 unit TID [facility] Administration Insulin Aspart 1 vial 05/21/19 16:30 05/21/19 17:21 Novolog Vial Sliding Scale - SQ Not Given ACHS [facility] Protocol Levothyroxine Sodium 25 mcg 05/22/19 07:00 Synthroid - PO 0700 [facility] Impression 1. CIARA 2. proteinuria 3. fluid overload 4. chf - moderately reduced systolic function 5. hypothryoidism 6. renal mass suspicious for malignancy 7. DM 8. HTN Plan - agree with lasix 40 iv bid - keep net negative - urology evaluation for renal mass, hold off giving iv contrast at this time until he is more stable. - check prt to plant protection officer ratio - check hg a1c - will send serologic workup for ciara/ckd - proteinuria and microscopic hematuria may be explained by diabetes but will explore other differentials - will follow
[2019-05-21 20:21] LABS: BLOOD UREA NITROGEN 35.5 mg/dL (7-18); CALCIUM 8.7 mg/dL (8.5-10.1); CREATININE 1.7 mg/dL (0.55-1.3); POTASSIUM 4.6 mmol/L (3.5-5.1)
[2019-05-21] MEDS ORDERED: PT OWN MED DRAWER 7, Y5N ONE (20:46)
[2019-05-21] MEDS: CARVEDILOL 6.25 MG TABLET (FP) PO SCH (21:13)
--- NOTE | 2019-05-21 21:28 | CONS ---
DATE OF CONSULTATION: 05/21/2019 The patient was admitted to the hospital with increasing bilateral lower extremity edema and increased abdominal girth. Review of the admission notes indicates the patient had a history of diabetes as well as congestive heart failure and he seems to have significant anasarca. BNP was over 6000. During the course of the evaluation, patient was noted to have a somewhat elevated BUN and creatinine and an ultrasound was performed. Ultrasound suggested a 4.5 x 5 cm mass in the mid left kidney, which appeared both vascular and solid, highly suspicious for a renal cell carcinoma. Patient denies any hematuria or any flank pain. With respect to the suspect renal mass, will have to wait and see if the patient's creatinine comes down sufficiently in order to obtain either an MRI or a CT study with and without contrast to confirm the presence of the mass. If his creatinine does not come down sufficiently, at a minimum a noncontrast CT will be needed to confirm the solid nature of the mass. The position of the mass at the present time appears such that it might very well be difficult to do a partial and the patient may in fact end up requiring a nephrectomy if in fact the mass is deemed to be a neoplasm, although the exact nature of the mass and the best approach is to be determined. In addition, the patient on physical exam is noted to have bilateral scrotal edema. This is likely related to the overall anasarca which is present. There are no specific treatments for the scrotal edema. As his anasarca and peripheral edema is treated, the scrotal edema would be expected to gradually subside and respond as well. In the interim, while the patient is lying down, if he can keep a folded towel or something else under the scrotum to keep the scrotum elevated, this should prove helpful in terms of more immediate symptomatic relief and decrease in the degree of edema. Whether the patient responds sufficiently while here in the hospital to get the CAT scan or whether this is done as an outpatient will depend on how his cardiac situation evolves. At the present time, he does not appear to be a candidate for surgical intervention even if the mass is solid, although one would expect that his cardiac situation can be optimized such that surgery would be possible if necessary. MD BERNADETTE ZABALA/[id number]
[2019-05-22] MEDS: FUROSEMIDE 40 MG/4 ML INJECTABLE VIAL IVPUSH SCH ×2 (06:19→14:44)
[2019-05-22] MEDS: HEPARIN NA (PORCINE) 5,000 UNITS/ML 1ML VIAL SQ SCH ×3 (06:19→21:03)
[2019-05-22] MEDS: LEVOTHYROXINE NA 25 MCG TABLET (FP) PO SCH (06:25)
[2019-05-22] MEDS: INSULIN SLIDING SCALE (NOVOLOG) 1 VIAL SQ SCH ×4 (06:30→21:30)
[2019-05-22 07:00] LABS: BASO % 0.8 % (0-2.0); EOS % 5.1 % (0-4.5); HEMOGLOBIN 12.1 GM/dL (11.7-16.9); LYMPH % 15.8 % (8-40); MCH 29.4 pg (25.7-33.7); MCHC 32.6 g/dl (32.0-35.9); MEAN CELL VOLUME 90.3 fl (80-96); MEAN PLT VOLUME 8.9 fl (7.5-11.1); MONO % 10.6 % (3.8-10.2); NEUT % 67.7 % (42.8-82.8); PLATELET COUNT 206 K/MM3 (134-434); RDW 16.4 % (11.9-15.9); WHITE BLOOD COUNT 5.4 K/mm3 (4.0-10.0)
[2019-05-22 07:25] LABS: ALBUMIN 2.8 g/dl (3.4-5.0); BILIRUBIN,TOTAL 0.7 mg/dL (0.2-1); BLOOD UREA NITROGEN 36.7 mg/dL (7-18); CALCIUM 8.5 mg/dL (8.5-10.1); CREATININE 1.5 mg/dL (0.55-1.3); MAGNESIUM 1.7 mg/dL (1.8-2.4); PHOSPHOROUS 4.3 mg/dL (2.5-4.9); TOT PROT 6.6 g/dl (6.4-8.2)
[2019-05-22 07:30] LABS: INR 1.18 (0.83-1.09); PROTHROMBIN TIME (PATIENT) 13.9 SEC (9.7-13.0)
[2019-05-22 07:33] LABS: ACTIVATED PTT 32.8 SECONDS (25.2-36.5)
[2019-05-22] MEDS ORDERED: MAGNESIUM SULF 50% (8.12 MEQ/2 ML-1 GM VIAL) IVPB ONE (08:06)
[2019-05-22] MEDS ORDERED: ENALAPRIL MALEATE 10 MG TABLET (FP) PO SCH (10:00)
[2019-05-22] MEDS: ASPIRIN 81 MG CHEWABLE TABLETS PO SCH (10:25)
[2019-05-22] MEDS: CARVEDILOL 6.25 MG TABLET (FP) PO SCH ×2 (10:25→21:03)
--- NOTE | 2019-05-22 10:31 | EKG ---
Test Reason : Blood Pressure : / mmHG Vent. Rate : 063 BPM Atrial Rate : 063 BPM P-R Int : 206 ms QRS Dur : 094 ms QT Int : 426 ms P-R-T Axes : 050 169 123 degrees QTc Int : 435 ms NORMAL SINUS RHYTHM LEFT POSTERIOR FASCICULAR BLOCK T WAVE ABNORMALITY, CONSIDER LATERAL ISCHEMIA ABNORMAL ECG WHEN COMPARED WITH ECG OF 21-MAY-2019 09:12, T WAVE INVERSION NOW EVIDENT IN ANTERIOR LEADS QT HAS SHORTENED Confirmed by TIFFANI JOAQUIN MD ([id number]) on 05/22/2019 10:31:41 AM Referred By: ADONISRenée CARTER Confirmed By:TIFFANI JOAQUIN MD
--- NOTE | 2019-05-22 10:33 | PN ---
Progress Note (short form) - Note Progress Note: s: sob better, no cp palps dizzy; abd edema better Current Medications Generic Name Dose Route Start Last Admin Trade Name Liborio PRN Reason Stop Dose Admin Aspirin 81 mg 05/22/19 10:00 05/22/19 10:25 Asa - PO 81 mg DAILY TASHI Administration Carvedilol 6.25 mg 05/21/19 22:00 05/22/19 10:25 Coreg - PO 6.25 mg BID TASHI Administration Enalapril Maleate 10 mg 05/22/19 10:00 05/22/19 10:25 Vasotec - PO 10 mg DAILY TASHI Administration Furosemide 40 mg 05/21/19 14:00 05/22/19 06:19 Lasix Injection - IVPUSH 40 mg BID@0600,1400 TASHI Administration Heparin Sodium (Porcine) 5,000 unit 05/21/19 14:00 05/22/19 06:19 Heparin - SQ 5,000 unit TID TASHI Administration Insulin Aspart 1 vial 05/21/19 16:30 05/22/19 06:30 Novolog Vial Sliding Scale - SQ Not Given ACHS [facility] Protocol Levothyroxine Sodium 25 mcg 05/22/19 07:00 05/22/19 06:25 Synthroid - PO 25 mcg 0700 TASHI Administration Vital Signs Period Temp Pulse Resp BP Sys/Bhatti Pulse Ox Last 24 Hr 97.6 F-98.2 F 68-88 18-20 140-160/75-105 98-98 nad no jvd rrr s1s2 no mrg cta bl nl eff no jaundice diaphoresis pos dp pt no carotid bruits abd nt pos bs, +distended with abd wall edema 2+ le edema to thighs, no c/c aao3 CBC, BMP 05/22/19 06:37 05/22/19 06:37 cxr: mild congestion ecg: sr, nl intervals no ischemic changes tele: sr echo 05/2019: lvh, mod dec lvef, mild dec rv fcn, mild rve, yue, mild mr, mod tr , nl rvsp a/p: 63 m hx htn, dm, chf here with sob, le edema. acute on chronic systolic chf: -mod dec lvef -pt with substantial le, scrotal, abdominal wall edema -pt was on lasix 40 po qd at home, cont iv lasix here, 40 iv bid, monitor daily wts, daily chem7 -no signs acs htn: -cont home coreg, lizzie-i dm: -manage per primary elevated trop: -borderline trop elevation with flat trend, not c/w acs mando: -no baseline available, could be ckd vs cardiorenal. monitor with diuresis.
--- NOTE | 2019-05-22 13:11 | RAPID ---
Physical Examination Vital Signs: Vital Signs Temperature 98 F 05/22/19 08:24 Pulse Rate 68 05/22/19 08:24 Respiratory Rate 20 05/22/19 08:24 Blood Pressure 160/89 05/22/19 08:24 O2 Sat by Pulse Oximetry (%) 98 05/22/19 08:24 Labs: CBC, BMP 05/22/19 06:37 05/22/19 06:37 Rapid Response - Rapid Response Assessment: S Rapid response was called overhead and team quickly responded. Upon arrival, pt was surrounded by nursing staff. Pt was sitting on the floor. It was reported by staff and patient that he was walking down the [place], became lightheaded and fell. He denies hitting his head or losing consciousness. Orthostatic vitals were negative. Pt reported quickly feeling better. He was placed on a stretcher with assistance and brought back to his room. O orthostatics negative alert and oriented, in no distress pitting edema b/l LE no pallor noted A/P #vasovagal pre-syncope orthostatic vitals were negative and pt quickly felt better continue to monitor on tele
--- NOTE | 2019-05-22 13:23 | EKG ---
Test Reason : Blood Pressure : / mmHG Vent. Rate : 088 BPM Atrial Rate : 088 BPM P-R Int : 184 ms QRS Dur : 098 ms QT Int : 414 ms P-R-T Axes : 069 175 115 degrees QTc Int : 500 ms NORMAL SINUS RHYTHM RIGHT AXIS DEVIATION NONSPECIFIC T WAVE ABNORMALITY ABNORMAL ECG NO PREVIOUS ECGS AVAILABLE Confirmed by TIFFANI JOAQUIN MD ([id number]) on 05/22/2019 1:23:34 PM Referred By: Confirmed By:TIFFANI JOAQUIN MD
--- NOTE | 2019-05-22 14:18 | PN ---
Progress Note, Physician History of Present Illness: Pt seen and examined at bedside. He had a syncopal episode. He feels that his breathing is improving. - Current Medication List Current Medications: Active Medications Aspirin (Asa -) 81 mg PO DAILY [facility] Last Admin: 05/22/19 10:25 Dose: 81 mg Carvedilol (Coreg -) 6.25 mg PO BID [facility] Last Admin: 05/22/19 10:25 Dose: 6.25 mg Enalapril Maleate (Vasotec -) 10 mg PO DAILY [facility] Last Admin: 05/22/19 10:25 Dose: 10 mg Furosemide (Lasix Injection -) 40 mg IVPUSH BID@0600,1400 [facility] Last Admin: 05/22/19 06:19 Dose: 40 mg Heparin Sodium (Porcine) (Heparin -) 5,000 unit SQ TID [facility] Last Admin: 05/22/19 06:19 Dose: 5,000 unit Insulin Aspart (Novolog Vial Sliding Scale -) 1 vial SQ ACHS [facility]; Protocol Last Admin: 05/22/19 11:00 Dose: Not Given Levothyroxine Sodium (Synthroid -) 25 mcg PO 0700 [facility] Last Admin: 05/22/19 06:25 Dose: 25 mcg - Objective Vital Signs: Vital Signs Temperature 98 F 05/22/19 08:24 Pulse Rate 68 05/22/19 08:24 Respiratory Rate 20 05/22/19 08:24 Blood Pressure 160/89 05/22/19 08:24 O2 Sat by Pulse Oximetry (%) 98 05/22/19 08:24 Constitutional: Yes: Calm Eyes: Yes: Conjunctiva Clear HENT: Yes: Atraumatic Neck: Yes: Supple Cardiovascular: Yes: S1, S2 Respiratory: Yes: CTA Bilaterally Gastrointestinal: Yes: Soft Genitourinary: Yes: WNL Edema: Yes Edema: LLE: 3+, RLE: 3+ Neurological: Yes: Oriented Psychiatric: Yes: Oriented Labs: CBC, BMP 05/22/19 06:37 05/22/19 06:37 INR, PTT INR 1.18 (0.83-1.09) H 05/22/19 06:37 Problem List - Problems (1) Renal mass Code(s): N28.89 - OTHER SPECIFIED DISORDERS OF KIDNEY AND URETER (2) Proteinuria Code(s): R80.9 - PROTEINURIA, UNSPECIFIED (3) CIARA (acute kidney injury) Code(s): N17.9 - ACUTE KIDNEY FAILURE, UNSPECIFIED (4) CHF exacerbation Code(s): I50.9 - HEART FAILURE, UNSPECIFIED Qualifiers: Heart failure type: unspecified Qualified Code(s): I50.9 - Heart failure, unspecified (5) Hypertension Code(s): I10 - ESSENTIAL (PRIMARY) HYPERTENSION Qualifiers: Hypertension type: essential hypertension Qualified Code(s): I10 - Essential (primary) hypertension (6) Fluid overload Code(s): E87.70 - FLUID OVERLOAD, UNSPECIFIED Qualifiers: Hypervolemia type: other Qualified Code(s): E87.79 - Other fluid overload (7) Pedal edema Code(s): R60.0 - LOCALIZED EDEMA Assessment/Plan Current Medications Generic Name Dose Route Start Last Admin Trade Name Freq PRN Reason Stop Dose Admin Aspirin 81 mg 05/22/19 10:00 05/22/19 10:25 Asa - PO 81 mg DAILY TASHI Administration Carvedilol 6.25 mg 05/21/19 22:00 05/22/19 10:25 Coreg - PO 6.25 mg BID TASHI Administration Enalapril Maleate 10 mg 05/22/19 10:00 05/22/19 10:25 Vasotec - PO 10 mg DAILY TASHI Administration Furosemide 40 mg 05/21/19 14:00 05/22/19 06:19 Lasix Injection - IVPUSH 40 mg BID@0600,1400 TASHI Administration Heparin Sodium (Porcine) 5,000 unit 05/21/19 14:00 05/22/19 06:19 Heparin - SQ 5,000 unit TID TASHI Administration Insulin Aspart 1 vial 05/21/19 16:30 05/22/19 11:00 Novolog Vial Sliding Scale - SQ Not Given ACHS [facility] Protocol Levothyroxine Sodium 25 mcg 05/22/19 07:00 05/22/19 06:25 Synthroid - PO 25 mcg 0700 TASHI Administration Laboratory Tests 05/22/19 07:30 Protein/Creatinin Ratio 3.5 Impression 1. CIARA 2. proteinuria - nephrotic 3. fluid overload 4. chf - moderately reduced systolic function 5. hypothryoidism 6. renal mass suspicious for malignancy 7. DM 8. HTN Plan - cont lasix - will need further imaging of renal mass once stable - follow serologic workup - discussed plan with pt - discussed with family - correct fluid overload with diuretics
--- NOTE | 2019-05-22 16:39 | PN ---
Physical Exam: SUBJECTIVE: Patient seen and examined at the bedside. Patient stated that he is feeling better. He noted that he has swelling in his legs, scrotum, and abdomen. He denied any cp, sob, abd pain, n/v/c/d, fever, chills, dizziness, lightheadedness, visual changes, headaches, orthopnea. OBJECTIVE: Vital Signs Period Temp Pulse Resp BP Sys/Bhatti Pulse Ox Last 24 Hr 97.6 F-98.2 F 54-88 18-20 117-160/81-105 98-98 GENERAL: The patient is awake, alert, and fully oriented, in no acute distress. Pleasant HEAD: Normal with no signs of trauma. EYES: PERRL, extraocular movements intact, sclera anicteric, conjunctiva clear. ENT: Oropharynx clear without exudates, moist mucous membranes. LUNGS: Breath sounds equal, mild bibasilar crackles, no wheezes, no accessory muscle use. HEART: Regular rate and rhythm, S1, S2 without murmur, rub. ABDOMEN: Soft, nontender, non-distended, normoactive bowel sounds, no guarding, no rebound, no masses. EXTREMITIES: 2+ pulses, warm, well-perfused, 3+ edema up to the knees. GENITAL: significant scrotal edema. NEUROLOGICAL: Cranial nerves II through XII grossly intact. 5/5 muscle strength bilaterally upper and lower extremities. PSYCH: Normal mood, normal affect. Laboratory Results - last 24 hr 05/21/19 05/21/19 05/21/19 17:16 18:00 18:00 WBC RBC Hgb Hct MCV MCH MCHC RDW Plt Count MPV Absolute Neuts (auto) Neutrophils % Lymphocytes % Monocytes % Eosinophils % Basophils % Nucleated RBC % PT with INR INR PTT (Actin FS) Sodium 138 Potassium 4.6 Chloride 104 Carbon Dioxide 27 Anion Gap 7 L BUN 35.5 H Creatinine 1.7 H Est GFR (CKD-EPI)AfAm 47.98 Est GFR (CKD-EPI)NonAf 41.40 POC Glucometer 122 Random Glucose 112 H Hemoglobin A1c % Calcium 8.7 Phosphorus Magnesium Total Bilirubin AST ALT Alkaline Phosphatase Creatine Kinase 741 H Creatine Kinase Index 0.9 CK-MB (CK-2) 7.1 H Troponin I 0.19 H Total Protein Albumin U Random Total Protein Ur Random Sodium Ur Random Potassium Ur Random Chloride Ur Random Urea Nitrogn Urine Creatinine Protein/Creatinin Ratio 05/21/19 05/21/19 05/22/19 18:00 22:32 06:28 WBC RBC Hgb Hct MCV MCH MCHC RDW Plt Count MPV Absolute Neuts (auto) Neutrophils % Lymphocytes % Monocytes % Eosinophils % Basophils % Nucleated RBC % PT with INR INR PTT (Actin FS) Sodium Potassium Chloride Carbon Dioxide Anion Gap BUN Creatinine Est GFR (CKD-EPI)AfAm Est GFR (CKD-EPI)NonAf POC Glucometer 107 103 Random Glucose Hemoglobin A1c % Calcium Phosphorus Magnesium Total Bilirubin AST ALT Alkaline Phosphatase Creatine Kinase Creatine Kinase Index CK-MB (CK-2) Troponin I 0.19 H Total Protein Albumin U Random Total Protein Ur Random Sodium Ur Random Potassium Ur Random Chloride Ur Random Urea Nitrogn Urine Creatinine Protein/Creatinin Ratio 05/22/19 05/22/19 05/22/19 06:37 06:37 06:37 WBC 5.4 RBC 4.10 Hgb 12.1 Hct 37.0 MCV 90.3 MCH 29.4 MCHC 32.6 RDW 16.4 H Plt Count 206 MPV 8.9 Absolute Neuts (auto) 3.7 Neutrophils % 67.7 Lymphocytes % 15.8 Monocytes % 10.6 H Eosinophils % 5.1 H Basophils % 0.8 Nucleated RBC % 0 PT with INR 13.90 H INR 1.18 H PTT (Actin FS) 32.8 Sodium 138 Potassium 4.0 Chloride 105 Carbon Dioxide 26 Anion Gap 7 L BUN 36.7 H Creatinine 1.5 H Est GFR (CKD-EPI)AfAm 55.82 Est GFR (CKD-EPI)NonAf 48.16 POC Glucometer Random Glucose 105 Hemoglobin A1c % Calcium 8.5 Phosphorus 4.3 Magnesium 1.7 L Total Bilirubin 0.7 AST 50 H ALT 32 Alkaline Phosphatase 152 H Creatine Kinase Creatine Kinase Index CK-MB (CK-2) Troponin I Total Protein 6.6 Albumin 2.8 L U Random Total Protein Ur Random Sodium Ur Random Potassium Ur Random Chloride Ur Random Urea Nitrogn Urine Creatinine Protein/Creatinin Ratio 05/22/19 05/22/19 05/22/19 06:37 07:30 07:30 WBC RBC Hgb Hct MCV MCH MCHC RDW Plt Count MPV Absolute Neuts (auto) Neutrophils % Lymphocytes % Monocytes % Eosinophils % Basophils % Nucleated RBC % PT with INR INR PTT (Actin FS) Sodium Potassium Chloride Carbon Dioxide Anion Gap BUN Creatinine Est GFR (CKD-EPI)AfAm Est GFR (CKD-EPI)NonAf POC Glucometer Random Glucose Hemoglobin A1c % 6.4 H Calcium Phosphorus Magnesium Total Bilirubin AST ALT Alkaline Phosphatase Creatine Kinase Creatine Kinase Index CK-MB (CK-2) Troponin I Total Protein Albumin U Random Total Protein Ur Random Sodium Cancelled Ur Random Potassium Cancelled Ur Random Chloride Cancelled Ur Random Urea Nitrogn Cancelled Urine Creatinine Protein/Creatinin Ratio 05/22/19 05/22/19 07:30 12:10 WBC RBC Hgb Hct MCV MCH MCHC RDW Plt Count MPV Absolute Neuts (auto) Neutrophils % Lymphocytes % Monocytes % Eosinophils % Basophils % Nucleated RBC % PT with INR INR PTT (Actin FS) Sodium Potassium Chloride Carbon Dioxide Anion Gap BUN Creatinine Est GFR (CKD-EPI)AfAm Est GFR (CKD-EPI)NonAf POC Glucometer 104 Random Glucose Hemoglobin A1c % Calcium Phosphorus Magnesium Total Bilirubin AST ALT Alkaline Phosphatase Creatine Kinase Creatine Kinase Index CK-MB (CK-2) Troponin I Total Protein Albumin U Random Total Protein 125.1 H Ur Random Sodium 106 Ur Random Potassium 17.0 L Ur Random Chloride 112 Ur Random Urea Nitrogn 330 L Urine Creatinine 36.0 Protein/Creatinin Ratio 3.5 Active Medications Generic Name Dose Route Start Last Admin Trade Name Freq PRN Reason Stop Dose Admin Aspirin 81 mg 05/22/19 10:00 05/22/19 10:25 Asa - PO 81 mg DAILY TASHI Administration Carvedilol 6.25 mg 05/21/19 22:00 05/22/19 10:25 Coreg - PO 6.25 mg BID TASHI Administration Enalapril Maleate 10 mg 05/22/19 10:00 05/22/19 10:25 Vasotec - PO 10 mg DAILY TASHI Administration Furosemide 40 mg 05/21/19 14:00 05/22/19 14:44 Lasix Injection - IVPUSH Not Given BID@0600,1400 [facility] Heparin Sodium (Porcine) 5,000 unit 05/21/19 14:00 05/22/19 14:44 Heparin - SQ 5,000 unit TID TASHI Administration Insulin Aspart 1 vial 05/21/19 16:30 05/22/19 11:00 Novolog Vial Sliding Scale - SQ Not Given ACHS [facility] Protocol Levothyroxine Sodium 25 mcg 05/22/19 07:00 05/22/19 06:25 Synthroid - PO 25 mcg 0700 TASHI Administration ASSESSMENT/PLAN: Patient is a 63 year old male with history of hypertension, diabetes mellitus ( non insulin dependent), hypothyroidism, presents with complaint of swelling to the lower extremities, scrotum, and abdomen. New Onset Heart Failure - BNP 6982 - Echo noting mild LVH, LV systolic function moderately reduced, EF 40-45%, Rv dilated, RV function reduced, L atrium/R atrium moderately dilated, mild mitral regurg, moderate tricuspid regurg - Right upper quadrant abdominal ultrasound noting hepatomegaly and heterogeneous liver, R pleural effusion, ascites - CXR noting large heart and congestive changes - continue diuresis with Lasix 40mg IV BID - Daily weights - Strict intake, output - Fluid restriction 1L/24 hours - Sodium restriction diet - Cardiology consulted, recs appreciated - troponins with flat trend - Hepatitis studies for anasarca - urology noting that scrotal edema should improve with diuresis CIARA on CKD - improving with diuresis - renal ultrasound with no hydro and no post-void residual - UA with 3+ protein and 1+ blood - Urine electrolytes - nephrology consulted, recs appreciated - renal workup pending L renal mass - as noted on renal U/S - will evaluate with CT with contrast when patient more stable and CRE improves - Urology consulted, recs appreciated Enlarged Prostate - as noted on badder U/S - will require outpatient urology f/u Hypertension - Continue home enalapril, Carvedilol Diabetes mellitus - HbA1c 6.4 - Holding home Metformin. - ISS - BGMS ACHS Hypothyroid - Continue home Synthroid FEN - No IV fluids indicated. 1L fluid restriction/ 24 hours - continue to monitor electrolytes and replete as necessary - Sodium restricted diet, diabetic modification Prophylaxis - Heparin 5000units subq TID Disposition - continue to monitor on telemetry Visit type - Emergency Visit Emergency Visit: Yes ED Registration Date: 05/21/19 Care time: The patient presented to the Emergency Department on the above date and was hospitalized for further evaluation of their emergent condition. - New Patient This patient is new to me today: Yes Date on this admission: 05/22/19 - Critical Care Critical Care patient: No
--- NOTE | 2019-05-22 19:18 | PN ---
Teaching Attending Note Name of Resident: Ramesh Avilez ATTENDING PHYSICIAN STATEMENT I saw and evaluated the patient. I reviewed the resident's note and discussed the case with the resident. I agree with the resident's findings and plan as documented. SUBJECTIVE: Feeling less SOB, mild improvement in LE edema. Still complains of scrotal edema. Episode of lightheadedness today, had to be helped to the floor, no LOC. No fall or HI. Recovered quickly. Orthostatics negative. Now denies any further lightheadedness. OBJECTIVE: Afebrile, hemodynamically Stable. Last Vital Signs Temp Pulse Resp BP Pulse Ox 97.5 F L 53 L 20 125/72 98 05/22/19 18:00 05/22/19 18:00 05/22/19 18:00 05/22/19 18:00 05/22/19 08:24 HEENT - Atraumatic, Normocephalic. Heart - S1, S2, RRR Lungs - decreased air entry bibasally Abdomen - High BMI, abdominal wall edema. Non-tender. Bowel Sounds normal. Extremities - pitting edema to pelvis/lower torso Neuro - AAO x 3. Tone/Power normal all extremities. Laboratory Results - last 24 hr 05/21/19 05/21/19 05/21/19 18:00 18:00 18:00 WBC RBC Hgb Hct MCV MCH MCHC RDW Plt Count MPV Absolute Neuts (auto) Neutrophils % Lymphocytes % Monocytes % Eosinophils % Basophils % Nucleated RBC % PT with INR INR PTT (Actin FS) Sodium 138 Potassium 4.6 Chloride 104 Carbon Dioxide 27 Anion Gap 7 L BUN 35.5 H Creatinine 1.7 H Est GFR (CKD-EPI)AfAm 47.98 Est GFR (CKD-EPI)NonAf 41.40 POC Glucometer Random Glucose 112 H Hemoglobin A1c % Calcium 8.7 Phosphorus Magnesium Total Bilirubin AST ALT Alkaline Phosphatase Creatine Kinase 741 H Creatine Kinase Index 0.9 CK-MB (CK-2) 7.1 H Troponin I 0.19 H 0.19 H Total Protein Albumin U Random Total Protein Ur Random Sodium Ur Random Potassium Ur Random Chloride Ur Random Urea Nitrogn Urine Creatinine Protein/Creatinin Ratio 05/21/19 05/22/19 05/22/19 22:32 06:28 06:37 WBC 5.4 RBC 4.10 Hgb 12.1 Hct 37.0 MCV 90.3 MCH 29.4 MCHC 32.6 RDW 16.4 H Plt Count 206 MPV 8.9 Absolute Neuts (auto) 3.7 Neutrophils % 67.7 Lymphocytes % 15.8 Monocytes % 10.6 H Eosinophils % 5.1 H Basophils % 0.8 Nucleated RBC % 0 PT with INR INR PTT (Actin FS) Sodium Potassium Chloride Carbon Dioxide Anion Gap BUN Creatinine Est GFR (CKD-EPI)AfAm Est GFR (CKD-EPI)NonAf POC Glucometer 107 103 Random Glucose Hemoglobin A1c % Calcium Phosphorus Magnesium Total Bilirubin AST ALT Alkaline Phosphatase Creatine Kinase Creatine Kinase Index CK-MB (CK-2) Troponin I Total Protein Albumin U Random Total Protein Ur Random Sodium Ur Random Potassium Ur Random Chloride Ur Random Urea Nitrogn Urine Creatinine Protein/Creatinin Ratio 05/22/19 05/22/19 05/22/19 06:37 06:37 06:37 WBC RBC Hgb Hct MCV MCH MCHC RDW Plt Count MPV Absolute Neuts (auto) Neutrophils % Lymphocytes % Monocytes % Eosinophils % Basophils % Nucleated RBC % PT with INR 13.90 H INR 1.18 H PTT (Actin FS) 32.8 Sodium 138 Potassium 4.0 Chloride 105 Carbon Dioxide 26 Anion Gap 7 L BUN 36.7 H Creatinine 1.5 H Est GFR (CKD-EPI)AfAm 55.82 Est GFR (CKD-EPI)NonAf 48.16 POC Glucometer Random Glucose 105 Hemoglobin A1c % 6.4 H Calcium 8.5 Phosphorus 4.3 Magnesium 1.7 L Total Bilirubin 0.7 AST 50 H ALT 32 Alkaline Phosphatase 152 H Creatine Kinase Creatine Kinase Index CK-MB (CK-2) Troponin I Total Protein 6.6 Albumin 2.8 L U Random Total Protein Ur Random Sodium Ur Random Potassium Ur Random Chloride Ur Random Urea Nitrogn Urine Creatinine Protein/Creatinin Ratio 05/22/19 05/22/19 05/22/19 07:30 07:30 07:30 WBC RBC Hgb Hct MCV MCH MCHC RDW Plt Count MPV Absolute Neuts (auto) Neutrophils % Lymphocytes % Monocytes % Eosinophils % Basophils % Nucleated RBC % PT with INR INR PTT (Actin FS) Sodium Potassium Chloride Carbon Dioxide Anion Gap BUN Creatinine Est GFR (CKD-EPI)AfAm Est GFR (CKD-EPI)NonAf POC Glucometer Random Glucose Hemoglobin A1c % Calcium Phosphorus Magnesium Total Bilirubin AST ALT Alkaline Phosphatase Creatine Kinase Creatine Kinase Index CK-MB (CK-2) Troponin I Total Protein Albumin U Random Total Protein 125.1 H Ur Random Sodium Cancelled 106 Ur Random Potassium Cancelled 17.0 L Ur Random Chloride Cancelled 112 Ur Random Urea Nitrogn Cancelled 330 L Urine Creatinine 36.0 Protein/Creatinin Ratio 3.5 05/22/19 05/22/19 12:10 18:32 WBC RBC Hgb Hct MCV MCH MCHC RDW Plt Count MPV Absolute Neuts (auto) Neutrophils % Lymphocytes % Monocytes % Eosinophils % Basophils % Nucleated RBC % PT with INR INR PTT (Actin FS) Sodium Potassium Chloride Carbon Dioxide Anion Gap BUN Creatinine Est GFR (CKD-EPI)AfAm Est GFR (CKD-EPI)NonAf POC Glucometer 104 158 Random Glucose Hemoglobin A1c % Calcium Phosphorus Magnesium Total Bilirubin AST ALT Alkaline Phosphatase Creatine Kinase Creatine Kinase Index CK-MB (CK-2) Troponin I Total Protein Albumin U Random Total Protein Ur Random Sodium Ur Random Potassium Ur Random Chloride Ur Random Urea Nitrogn Urine Creatinine Protein/Creatinin Ratio Current Medications Generic Name Dose Route Start Last Admin Trade Name Freq PRN Reason Stop Dose Admin Aspirin 81 mg 05/22/19 10:00 05/22/19 10:25 Asa - PO 81 mg DAILY TASHI Administration Carvedilol 6.25 mg 05/21/19 22:00 05/22/19 10:25 Coreg - PO 6.25 mg BID [facility] Administration Enalapril Maleate 10 mg 05/22/19 10:00 05/22/19 10:25 Vasotec - PO 10 mg DAILY TASH[facility] Administration Furosemide 40 mg 05/21/19 14:00 05/22/19 14:44 Lasix Injection - IVPUSH Not Given BID@0600,1400 [facility] Heparin Sodium (Porcine) 5,000 unit 05/21/19 14:00 05/22/19 14:44 Heparin - SQ 5,000 unit TID [facility] Administration Insulin Aspart 1 vial 05/21/19 16:30 05/22/19 18:38 Novolog Vial Sliding Scale - SQ Not Given ACHS [facility] Protocol Levothyroxine Sodium 25 mcg 05/22/19 07:00 05/22/19 06:25 Synthroid - PO 25 mcg 0700 [facility] Administration Home Medications Medication Instructions Recorded Enalapril Maleate [Vasotec -] 10 mg PO DAILY 05/18/19 Furosemide 20 mg PO DAILY 05/18/19 Levothyroxine [Synthroid -] 25 mcg PO DAILY 05/18/19 Metformin HCl [Glucophage] 1,000 mg PO BID 05/18/19 Aspirin [ASA -] 81 mg PO DAILY 05/21/19 Carvedilol 6.25 mg PO BID 05/21/19 ASSESSMENT AND PLAN: 63 year old male with history of morbid obesity, HTN, DM 2, Hypothyroidism, presents with LE, scrotal, abdominal wall swelling with associated SOB on exertion. No CP/palpitations. 1. Acute Systolic CHF decompensation - newly diagnosed CXR - congestion BNP 6982 Abdo US - Ascites, R pleural effusion, Hepatomegaly Echo - LVH, EF 40-45%, moderate TR Doppler negative for DVT bilateral LE. Baseline elevation in Troponin likely sc to CHF - troponin flat, no evidence of ACS IV Lasix BID Cardiology following. 2. L Renal Mass, incidental finding For Urology work-up as out-patient, likely Nephrectomy once stabilized and optimized from Cardiology perspective. Urology follow up. 3. CIARA vs CKD 3 Possible Cardiorenal syndrome Will follow Creat in response to Lasix diuresis. Serologic work-up for CIARA vs CKD pending. Nephrology following. 4. HTN - continue Coreg, Enalapril. 5. DM 2 - maintain on Novolog sliding scale. 6. Hypothyroidsm - continue synthroid. 7. Hypomagnesemia - repleted, will monitor. DVT px - Heparin SQ
[2019-05-23] MEDS: LEVOTHYROXINE NA 25 MCG TABLET (FP) PO SCH (06:20)
[2019-05-23] MEDS: HEPARIN NA (PORCINE) 5,000 UNITS/ML 1ML VIAL SQ SCH ×3 (06:20→22:09)
[2019-05-23] MEDS: FUROSEMIDE 40 MG/4 ML INJECTABLE VIAL IVPUSH SCH ×3 (06:20→16:07)
[2019-05-23] MEDS: INSULIN SLIDING SCALE (NOVOLOG) 1 VIAL SQ SCH ×3 (06:30→22:18)
[2019-05-23 06:48] LABS: BASO % 1.1 % (0-2.0); EOS % 5.4 % (0-4.5); HEMATOCRIT 36.9 % (35.4-49); HEMOGLOBIN 12.1 GM/dL (11.7-16.9); LYMPH % 22.5 % (8-40); MCH 29.4 pg (25.7-33.7); MCHC 32.7 g/dl (32.0-35.9); MEAN PLT VOLUME 9.4 fl (7.5-11.1); MONO % 12.2 % (3.8-10.2); NEUT % 58.8 % (42.8-82.8); PLATELET COUNT 202 K/MM3 (134-434); RDW 16.4 % (11.9-15.9)
[2019-05-23 07:09] LABS: ALBUMIN 2.8 g/dl (3.4-5.0); BILIRUBIN,TOTAL 1.4 mg/dL (0.2-1); BLOOD UREA NITROGEN 44.2 mg/dL (7-18); CALCIUM 8.3 mg/dL (8.5-10.1); CREATININE 1.9 mg/dL (0.55-1.3); MAGNESIUM 1.9 mg/dL (1.8-2.4); PHOSPHOROUS 4.4 mg/dL (2.5-4.9); POTASSIUM 4.4 mmol/L (3.5-5.1); TOT PROT 6.4 g/dl (6.4-8.2)
[2019-05-23] MEDS ORDERED: CARVEDILOL 6.25 MG TABLET (FP) PO SCH (08:44)
--- NOTE | 2019-05-23 08:45 | PN ---
Progress Note, Physician Chief Complaint: chf History of Present Illness: rapid response yest. per notes: staff and patient stated that he was walking down the [place], became lightheaded and fell. He denies hitting his head or losing consciousness. Orthostatic vitals were negative not urinating that much more (3 x after this morning's lasix, less after last night's dose) does not think scrotal or leg swelling is much improved no sob at rest no cp ever no palp, syncope denies etoh or drugs ever no cigs doesn't know baseline BPs or A1c at PMD (Dr Heredia). no prior cardio w/u - Current Medication List Current Medications: Active Medications Aspirin (Asa -) 81 mg PO DAILY [facility] Last Admin: 05/22/19 10:25 Dose: 81 mg Carvedilol (Coreg -) 6.25 mg PO BID [facility] Last Admin: 05/22/19 21:03 Dose: 6.25 mg Enalapril Maleate (Vasotec -) 10 mg PO DAILY [facility] Last Admin: 05/22/19 10:25 Dose: 10 mg Furosemide (Lasix Injection -) 40 mg IVPUSH BID@0600,1400 [facility] Last Admin: 05/23/19 06:20 Dose: 40 mg Heparin Sodium (Porcine) (Heparin -) 5,000 unit SQ TID [facility] Last Admin: 05/23/19 06:20 Dose: 5,000 unit Insulin Aspart (Novolog Vial Sliding Scale -) 1 vial SQ ACHS [facility]; Protocol Last Admin: 05/23/19 06:30 Dose: Not Given Levothyroxine Sodium (Synthroid -) 25 mcg PO 0700 [facility] Last Admin: 05/23/19 06:20 Dose: 25 mcg - Objective Vital Signs: Vital Signs Temperature 98.2 F 05/23/19 08:08 Pulse Rate 62 05/23/19 08:08 Respiratory Rate 20 05/23/19 08:08 Blood Pressure 154/99 05/23/19 08:08 O2 Sat by Pulse Oximetry (%) 98 05/23/19 08:08 Constitutional: Yes: No Distress, Calm, Obese Eyes: No: Sclera Icterus HENT: No: Nasal Congestion Cardiovascular: Yes: Regular Rate and Rhythm, JVD, S1, S2, Other (PMI non diplaced). No: Gallop, Murmur Respiratory: Yes: CTA Bilaterally. No: Accessory Muscle Use, Rales, Wheezes Gastrointestinal: Yes: Normal Bowel Sounds, Soft. No: Tenderness Musculoskeletal: Yes: Other (No kyphosis) Extremities: No: Cold Edema: Yes (4+ LEs) Integumentary: No: Jaundice Neurological: Yes: Alert, Oriented (x3) Psychiatric: No: Agitated Labs: CBC, BMP 05/23/19 05:24 05/23/19 05:24 INR, PTT INR 1.18 (0.83-1.09) H 05/22/19 06:37 Assessment/Plan cxr: mild congestion ecg: sr, nl intervals no ischemic changes echo 05/2019: lvh, mod dec lvef, mild dec rv fcn, mild rve, yue, mild mr, mod tr , nl rvsp tele: NSR, PVCs, NSVT x 6b, artifact a/p: 63 m hx htn, dm, chf here with sob, le edema. acute on chronic systolic chf: -mod dec lvef on echo here, global (40-45%) -no prior studies available for comparison. ? prior ischemia eval. -possibly HTN or DM cardiomyopathy, r/o BRITT (outpt PSG). no angina history-- will need MPI (defer cath or consideration of PCI until renal mass evaluated fully, and no invasive procedures are on the horizon) -presented with substantial le, scrotal, abdominal wall edema--not improving -pt was on lasix 40 po qd at home. wt not responding to lasix 40 iv bid here, bun/creat worsening--suspect ineffective diuresis. increase to lsix 80 iv bid, may need 100. -if creat worsens will add low dose nitrates cautiously (for cardiorenal syndrome), though will have to closely watch for recurrent dizziness -no signs acs htn: -target <130/80 -moderately above goals -will not incr meds at this time, positional LH episode noted 1/3 with fall -observe bp trend with diuresis dm: -A1c 6's -manage per primary elevated trop: -borderline trop elevation with flat trend, not c/w acs = rather sec to CHF CIARA, renal mass: -renal following -no baseline available, could be ckd vs cardiorenal. monitor with effective diuresis.
[2019-05-23] MEDS: ASPIRIN 81 MG CHEWABLE TABLETS PO SCH (09:18)
[2019-05-23] MEDS: CARVEDILOL 6.25 MG TABLET (FP) PO SCH ×2 (09:18→22:09)
--- NOTE | 2019-05-23 11:15 | PN ---
Physical Exam: SUBJECTIVE: Patient seen and examined at the bedside. Overnight events and rapid response noted. Patient stated today that he was feeling well and denied any cp, palpitations, sob, abd pain, n/v/c/d, tremors, dizziness, lightheadedness, headaches. Endorsed that his swelling had not subsided significantly. Patient noting that he was not producing a lot of urine. OBJECTIVE: Vital Signs Period Temp Pulse Resp BP Sys/Bhatti Pulse Ox Last 24 Hr 97.5 F-98.2 F 53-64 20-20 117-154/72-101 98-98 GENERAL: The patient is awake, alert, and fully oriented, in no acute distress. Pleasant HEAD: Normal with no signs of trauma. EYES: PERRL, extraocular movements intact, sclera anicteric, conjunctiva clear. ENT: Oropharynx clear without exudates, moist mucous membranes. LUNGS: Breath sounds equal, diminished, mild bibasilar crackles, no wheezes, no accessory muscle use. HEART: Regular rate and rhythm, S1, S2 without murmur, rub. ABDOMEN: Soft, nontender, non-distended, normoactive bowel sounds, no guarding, no rebound, no masses. EXTREMITIES: 2+ pulses, warm, well-perfused, 3+ edema up to the knees. GENITAL: significant scrotal edema. NEUROLOGICAL: Cranial nerves II through XII grossly intact. 5/5 muscle strength bilaterally upper and lower extremities. PSYCH: Normal mood, normal affect. Laboratory Results - last 24 hr 05/22/19 05/22/19 05/22/19 12:10 18:32 21:28 WBC RBC Hgb Hct MCV MCH MCHC RDW Plt Count MPV Absolute Neuts (auto) Neutrophils % Lymphocytes % Monocytes % Eosinophils % Basophils % Nucleated RBC % Sodium Potassium Chloride Carbon Dioxide Anion Gap BUN Creatinine Est GFR (CKD-EPI)AfAm Est GFR (CKD-EPI)NonAf POC Glucometer 104 158 142 Random Glucose Calcium Phosphorus Magnesium Total Bilirubin AST ALT Alkaline Phosphatase Total Protein Albumin 05/23/19 05/23/19 05/23/19 05:24 05:24 06:28 WBC 5.0 RBC 4.10 Hgb 12.1 Hct 36.9 MCV 90.0 MCH 29.4 MCHC 32.7 RDW 16.4 H Plt Count 202 MPV 9.4 Absolute Neuts (auto) 2.9 Neutrophils % 58.8 Lymphocytes % 22.5 D Monocytes % 12.2 H Eosinophils % 5.4 H Basophils % 1.1 Nucleated RBC % 0 Sodium 138 Potassium 4.4 Chloride 106 Carbon Dioxide 24 Anion Gap 8 BUN 44.2 H Creatinine 1.9 H Est GFR (CKD-EPI)AfAm 41.94 Est GFR (CKD-EPI)NonAf 36.19 POC Glucometer 112 Random Glucose 100 Calcium 8.3 L Phosphorus 4.4 Magnesium 1.9 Total Bilirubin 1.4 H AST 49 H ALT 33 Alkaline Phosphatase 162 H Total Protein 6.4 Albumin 2.8 L Active Medications Generic Name Dose Route Start Last Admin Trade Name Freq PRN Reason Stop Dose Admin Aspirin 81 mg 05/22/19 10:00 05/23/19 09:18 Asa - PO 81 mg DAILY TASHI Administration Carvedilol 6.25 mg 05/23/19 08:46 05/23/19 09:18 Coreg - PO 6.25 mg BID [facility] Administration Furosemide 80 mg 05/23/19 10:45 Lasix Injection - IVPUSH BID@0600,1400 [facility] Heparin Sodium (Porcine) 5,000 unit 05/21/19 14:00 05/23/19 06:20 Heparin - SQ 5,000 unit TID [facility] Administration Insulin Aspart 1 vial 05/21/19 16:30 05/23/19 06:30 Novolog Vial Sliding Scale - SQ Not Given ACHS [facility] Protocol Levothyroxine Sodium 25 mcg 05/22/19 07:00 05/23/19 06:20 Synthroid - PO 25 mcg 0700 [facility] Administration IMAGING - Echo noting mild LVH, LV systolic function moderately reduced, EF 40-45%, Rv dilated, RV function reduced, L atrium/R atrium moderately dilated, mild mitral regurg, moderate tricuspid regurg - Right upper quadrant abdominal ultrasound noting hepatomegaly and heterogeneous liver, R pleural effusion, ascites - CXR noting large heart and congestive changes ASSESSMENT/PLAN: Patient is a 63 year old male with history of hypertension, diabetes mellitus ( non insulin dependent), hypothyroidism, presents with complaint of swelling to the lower extremities, scrotum, and abdomen. New Onset Heart Failure - increase diuresis with Lasix 80mg IV BID as per cardiology - Daily weights - Strict intake, output - Fluid restriction 1L/24 hours - Sodium restriction diet - Cardiology consulted, recs appreciated - will likely need MPI to assess for reason of decreased EF - troponins with flat trend - Hepatitis studies for anasarca - urology noting that scrotal edema should improve with diuresis - physical therapy CIARA on CKD - CRE trending up - renal ultrasound with no hydro and no post-void residual - UA with 3+ protein and 1+ blood - Urine electrolytes - nephrology consulted, recs appreciated - renal workup pending - holding enalapril in setting of diuresis L renal mass - as noted on renal U/S - will evaluate with CT with contrast when patient more stable and CRE improves - Urology consulted, recs appreciated Enlarged Prostate - as noted on badder U/S - will require outpatient urology f/u Hyperbilirubinemia - total bilirubin 1.4, continue to trend - direct 0.2 - RUQ U/s as above Hypertension - Continue home Carvedilol, hold enalapril - hold increase of meds due to lightheadedness episode Diabetes mellitus - HbA1c 6.4 - Holding home Metformin. - ISS - BGMS ACHS Hypothyroid - Continue home Synthroid FEN - No IV fluids indicated. 1L fluid restriction/ 24 hours - continue to monitor electrolytes and replete as necessary - Sodium restricted diet, diabetic modification Prophylaxis - Heparin 5000units subq TID Disposition - continue to monitor on telemetry Visit type - Emergency Visit Emergency Visit: Yes ED Registration Date: 05/21/19 Care time: The patient presented to the Emergency Department on the above date and was hospitalized for further evaluation of their emergent condition. - New Patient This patient is new to me today: No - Critical Care Critical Care patient: No
[2019-05-23 11:19] LABS: BILIRUBIN,DIRECT 0.2 mg/dL (0.0-0.2)
--- NOTE | 2019-05-23 11:27 | PN ---
Teaching Attending Note Name of Resident: Ramesh Avilez ATTENDING PHYSICIAN STATEMENT I saw and evaluated the patient. I reviewed the resident's note and discussed the case with the resident. I agree with the resident's findings and plan as documented. SUBJECTIVE: Feeling less SOB. Still complains of LE and scrotal edema. No further lightheadedness. OBJECTIVE: Afebrile, hemodynamically Stable. Orthostatic vitals negative. Last Vital Signs Temp Pulse Resp BP Pulse Ox 98.2 F 62 20 154/99 98 05/23/19 08:08 05/23/19 08:08 05/23/19 08:08 05/23/19 08:08 05/23/19 08:08 Heart - S1, S2, RRR Lungs - decreased air entry bibasally Abdomen - High BMI, abdominal wall edema. Non-tender. Bowel Sounds normal. Extremities - pitting edema to pelvis/lower back Neuro - AAO x 3. Tone/Power normal all extremities. Laboratory Results - last 24 hr 05/22/19 05/22/19 05/22/19 12:10 18:32 21:28 WBC RBC Hgb Hct MCV MCH MCHC RDW Plt Count MPV Absolute Neuts (auto) Neutrophils % Lymphocytes % Monocytes % Eosinophils % Basophils % Nucleated RBC % Sodium Potassium Chloride Carbon Dioxide Anion Gap BUN Creatinine Est GFR (CKD-EPI)AfAm Est GFR (CKD-EPI)NonAf POC Glucometer 104 158 142 Random Glucose Calcium Phosphorus Magnesium Total Bilirubin Direct Bilirubin AST ALT Alkaline Phosphatase Total Protein Albumin 05/23/19 05/23/19 05/23/19 05:24 05:24 06:28 WBC 5.0 RBC 4.10 Hgb 12.1 Hct 36.9 MCV 90.0 MCH 29.4 MCHC 32.7 RDW 16.4 H Plt Count 202 MPV 9.4 Absolute Neuts (auto) 2.9 Neutrophils % 58.8 Lymphocytes % 22.5 D Monocytes % 12.2 H Eosinophils % 5.4 H Basophils % 1.1 Nucleated RBC % 0 Sodium 138 Potassium 4.4 Chloride 106 Carbon Dioxide 24 Anion Gap 8 BUN 44.2 H Creatinine 1.9 H Est GFR (CKD-EPI)AfAm 41.94 Est GFR (CKD-EPI)NonAf 36.19 POC Glucometer 112 Random Glucose 100 Calcium 8.3 L Phosphorus 4.4 Magnesium 1.9 Total Bilirubin 1.4 H Direct Bilirubin 0.2 AST 49 H ALT 33 Alkaline Phosphatase 162 H Total Protein 6.4 Albumin 2.8 L Current Medications Generic Name Dose Route Start Last Admin Trade Name Liborio PRN Reason Stop Dose Admin Aspirin 81 mg 05/22/19 10:00 05/23/19 09:18 Asa - PO 81 mg DAILY TASHI Administration Carvedilol 6.25 mg 05/23/19 08:46 05/23/19 09:18 Coreg - PO 6.25 mg BID [facility] Administration Furosemide 80 mg 05/23/19 10:45 Lasix Injection - IVPUSH BID@0600,1400 [facility] Heparin Sodium (Porcine) 5,000 unit 05/21/19 14:00 05/23/19 06:20 Heparin - SQ 5,000 unit TID [facility] Administration Insulin Aspart 1 vial 05/21/19 16:30 05/23/19 06:30 Novolog Vial Sliding Scale - SQ Not Given ACHS [facility] Protocol Levothyroxine Sodium 25 mcg 05/22/19 07:00 05/23/19 06:20 Synthroid - PO 25 mcg 0700 [facility] Administration Home Medications Medication Instructions Recorded Enalapril Maleate [Vasotec -] 10 mg PO DAILY 05/18/19 Furosemide 20 mg PO DAILY 05/18/19 Levothyroxine [Synthroid -] 25 mcg PO DAILY 05/18/19 Metformin HCl [Glucophage] 1,000 mg PO BID 05/18/19 Aspirin [ASA -] 81 mg PO DAILY 05/21/19 Carvedilol 6.25 mg PO BID 05/21/19 ASSESSMENT AND PLAN: 63 year old male with history of morbid obesity, HTN, DM 2, Hypothyroidism, presents with LE, scrotal, abdominal wall swelling with associated SOB on exertion. No CP/palpitations. 1. Acute Systolic CHF decompensation - newly diagnosed CXR - congestion BNP 6982 Abdo US - Ascites, R pleural effusion, Hepatomegaly Echo - LVH, EF 40-45%, moderate TR Doppler negative for DVT bilateral LE. Baseline elevation in Troponin likely sec to CHF - troponin flat, no evidence of ACS Tele - NSR, PVCs, NSVT IV Lasix BID - dose increased from 40mg BID to 80mg BID due to inadequate diuresis. Cardiology following. Will eventually require MPI and outpatient PSG to exclude BRITT. 2. L Renal Mass, incidental finding For Urology work-up as out-patient, likely Nephrectomy once stabilized and optimized from Cardiology perspective. Urology follow up. 3. CIARA vs CKD 3 Possible Cardiorenal syndrome Worsening Creat, will monitor as diuresis is intensified. Serologic work-up for CIARA vs CKD pending. Nephrology following. 4. HTN - continue Coreg. enalapril held due to CIARA. 5. DM 2 - maintain on Novolog sliding scale. 6. Hypothyroidsm - continue synthroid. 7. Hypomagnesemia - repleted, will monitor. DVT Px - Heparin SQ
--- NOTE | 2019-05-23 12:01 | PN ---
Progress Note (short form) - Note Progress Note: Renal follow up for CIARA and fluid overload Coverage for Dr. Loza Seen and examined at the bedside awake and alert no shortness of breath legs remain swollen making urine Vital Signs Temperature 98.2 F 05/23/19 08:08 Pulse Rate 62 05/23/19 08:08 Respiratory Rate 20 05/23/19 08:08 Blood Pressure 154/99 05/23/19 08:08 O2 Sat by Pulse Oximetry (%) 98 05/23/19 08:08 Intake & Output 05/20/19 05/21/19 05/22/19 05/23/19 23:59 23:59 23:59 23:59 Intake Total 400 200 300 Output Total 250 Balance 400 200 50 Weight 113.398 kg 126.643 kg 127.459 kg NAD awake and alert neck supple RRR Dec BS at lung bases soft NT/ND, Obese + edema in legs CBC, BMP 05/23/19 05:24 05/23/19 05:24 Current Medications Aspirin (Asa -) 81 mg PO DAILY [facility] Last Admin: 05/23/19 09:18 Dose: 81 mg Carvedilol (Coreg -) 6.25 mg PO BID [facility] Last Admin: 05/23/19 09:18 Dose: 6.25 mg Furosemide (Lasix Injection -) 80 mg IVPUSH BID@0600,1400 [facility] Last Admin: 05/23/19 11:31 Dose: 80 mg Heparin Sodium (Porcine) (Heparin -) 5,000 unit SQ TID [facility] Last Admin: 05/23/19 06:20 Dose: 5,000 unit Insulin Aspart (Novolog Vial Sliding Scale -) 1 vial SQ ACHS [facility]; Protocol Last Admin: 05/23/19 11:32 Dose: Not Given Levothyroxine Sodium (Synthroid -) 25 mcg PO 0700 [facility] Last Admin: 05/23/19 06:20 Dose: 25 mcg Impression 1. CIARA 2. proteinuria - nephrotic 3. fluid overload 4. chf - moderately reduced systolic function 5. hypothryoidism 6. renal mass suspicious for malignancy 7. DM 8. HTN Plan Lasix increased as per cardiology Cr noted to rise today, but will continue IV Lasix given fluid overload Trend renal function, electrolytes and weights daily serologic work up for protienuria pending Garcia Best DO
[2019-05-23 20:09] LABS: HEP B CORE AB, TOT Negative (Negative)
[2019-05-24] MEDS: HEPARIN NA (PORCINE) 5,000 UNITS/ML 1ML VIAL SQ SCH ×3 (06:04→23:00)
[2019-05-24] MEDS: FUROSEMIDE 40 MG/4 ML INJECTABLE VIAL IVPUSH SCH ×2 (06:04→15:11)
[2019-05-24] MEDS: INSULIN SLIDING SCALE (NOVOLOG) 1 VIAL SQ SCH ×4 (06:10→23:05)
[2019-05-24] MEDS: LEVOTHYROXINE NA 25 MCG TABLET (FP) PO SCH (06:45)
[2019-05-24 06:52] LABS: ALBUMIN 2.8 g/dl (3.4-5.0); BILIRUBIN,TOTAL 0.7 mg/dL (0.2-1); BLOOD UREA NITROGEN 48.3 mg/dL (7-18); CALCIUM 8.6 mg/dL (8.5-10.1); CREATININE 1.8 mg/dL (0.55-1.3); MAGNESIUM 1.8 mg/dL (1.8-2.4); PHOSPHOROUS 4.8 mg/dL (2.5-4.9); POTASSIUM 4.3 mmol/L (3.5-5.1); TOT PROT 6.4 g/dl (6.4-8.2)
--- NOTE | 2019-05-24 09:43 | PN ---
Progress Note, Physician Chief Complaint: sob, swelling History of Present Illness: urinated somewhat more after IV lasix (4x today) swelling about same no cp, palp, sob - Current Medication List Current Medications: Active Medications Aspirin (Asa -) 81 mg PO DAILY [facility] Last Admin: 05/23/19 09:18 Dose: 81 mg Carvedilol (Coreg -) 6.25 mg PO BID [facility] Last Admin: 05/23/19 22:09 Dose: 6.25 mg Furosemide (Lasix Injection -) 80 mg IVPUSH BID@0600,1400 [facility] Last Admin: 05/24/19 06:04 Dose: 80 mg Heparin Sodium (Porcine) (Heparin -) 5,000 unit SQ TID [facility] Last Admin: 05/24/19 06:04 Dose: 5,000 unit Insulin Aspart (Novolog Vial Sliding Scale -) 1 vial SQ ACHS [facility]; Protocol Last Admin: 05/24/19 06:10 Dose: Not Given Levothyroxine Sodium (Synthroid -) 25 mcg PO 0700 [facility] Last Admin: 05/24/19 06:45 Dose: 25 mcg - Objective Vital Signs: Vital Signs Temperature 97.7 F 05/24/19 02:00 Pulse Rate 64 05/24/19 09:15 Respiratory Rate 20 05/24/19 09:15 Blood Pressure 129/71 05/24/19 09:15 O2 Sat by Pulse Oximetry (%) 95 05/24/19 09:00 Constitutional: Yes: Well Nourished, No Distress, Calm Cardiovascular: Yes: Regular Rate and Rhythm, JVD (probable), S1, S2. No: Gallop, Murmur Respiratory: Yes: Regular, CTA Bilaterally. No: Accessory Muscle Use, Rales, Wheezes Extremities: No: Cold Edema: Yes (2+ pretib) Neurological: Yes: Alert, Oriented Psychiatric: No: Agitated Labs: CBC, BMP 05/23/19 05:24 05/24/19 05:38 INR, PTT INR 1.18 (0.83-1.09) H 05/22/19 06:37 Assessment/Plan cxr: mild congestion ecg: sr, nl intervals no ischemic changes echo 05/2019: lvh, mod dec lvef, mild dec rv fcn, mild rve, yue, mild mr, mod tr , nl rvsp tele: NSR a/p: 63 m hx htn, dm, chf here with sob, le edema. acute on chronic systolic chf: -mod dec lvef on echo here, global (40-45%) -no prior studies available for comparison. ? prior ischemia eval. -possibly HTN or DM cardiomyopathy, r/o BRITT (outpt PSG). no angina history-- will need MPI (defer cath or consideration of PCI until renal mass evaluated fully, and no invasive procedures are on the horizon) -presented with substantial le, scrotal, abdominal wall edema--not improving -pt was on lasix 40 po qd at home. wt not responding to lasix 40 iv bid here, bun/creat worsening--suspect ineffective diuresis. increased to 80 iv bid on 05/23. good wt response today, creat minimally improved. continue lasix 80 iv BID -add spironolactone once renal fxn stabilizes -if creat worsens will add low dose nitrates cautiously (for cardiorenal syndrome), though will have to closely watch for recurrent dizziness -no signs acs htn: -target <130/80 -now better controlled dm: -A1c 6's -manage per primary elevated trop: -borderline trop elevation with flat trend, not c/w acs = rather sec to CHF CIARA, renal mass: -renal following -no baseline available, could be ckd vs cardiorenal. monitor with effective diuresis.
[2019-05-24] MEDS: CARVEDILOL 6.25 MG TABLET (FP) PO SCH ×2 (10:09→23:00)
[2019-05-24] MEDS: ASPIRIN 81 MG CHEWABLE TABLETS PO SCH (10:09)
[2019-05-24] MEDS ORDERED: MAGNESIUM SULF 50% (8.12 MEQ/2 ML-1 GM VIAL) IVPB ONE (11:00)
--- NOTE | 2019-05-24 11:39 | PN ---
Progress Note (short form) - Note Progress Note: Renal follow up for CIARA and fluid overload Coverage for Dr. Loza Seen and examined at the bedside awake and alert feels better making urine leg swelling improving Vital Signs Temperature 97.7 F 05/24/19 02:00 Pulse Rate 64 05/24/19 09:15 Respiratory Rate 20 05/24/19 09:15 Blood Pressure 129/71 05/24/19 09:15 O2 Sat by Pulse Oximetry (%) 95 05/24/19 09:00 Intake & Output 05/21/19 05/22/19 05/23/19 05/24/19 23:59 23:59 23:59 23:59 Intake Total 400 200 890 240 Output Total 900 700 Balance 400 200 -10 -460 Weight 113.398 kg 126.643 kg 127.459 kg 125.827 kg NAD awake and alert neck supple RRR Dec BS at lung bases soft NT/ND, Obese + edema in legs CBC, BMP 05/23/19 05:24 05/24/19 05:38 Current Medications Aspirin (Asa -) 81 mg PO DAILY [facility] Last Admin: 05/24/19 10:09 Dose: 81 mg Carvedilol (Coreg -) 6.25 mg PO BID [facility] Last Admin: 05/24/19 10:09 Dose: 6.25 mg Furosemide (Lasix Injection -) 80 mg IVPUSH BID@0600,1400 [facility] Last Admin: 05/24/19 06:04 Dose: 80 mg Heparin Sodium (Porcine) (Heparin -) 5,000 unit SQ TID [facility] Last Admin: 05/24/19 06:04 Dose: 5,000 unit Insulin Aspart (Novolog Vial Sliding Scale -) 1 vial SQ ACHS [facility]; Protocol Last Admin: 05/24/19 06:10 Dose: Not Given Levothyroxine Sodium (Synthroid -) 25 mcg PO 0700 [facility] Last Admin: 05/24/19 06:45 Dose: 25 mcg Impression 1. CIARA 2. proteinuria - nephrotic 3. fluid overload 4. chf - moderately reduced systolic function 5. hypothryoidism 6. renal mass suspicious for malignancy 7. DM 8. HTN Plan Renal function stable over the past 24 hours Weights improving continue lasix IV BID Trend renal function, electrolytes and weights daily serologic work up for protienuria pending will need additional imaging studies of renal mass once renal function improved Garcia Best DO
--- NOTE | 2019-05-24 14:31 | PN ---
Progress Note (short form) - Note Progress Note: SUBJECTIVE: Feeling less SOB. Some mild improvement in LE and scrotal edema. No further lightheadedness. OBJECTIVE: Afebrile, hemodynamically Stable. Orthostatic vitals negative. Last Vital Signs Temp Pulse Resp BP Pulse Ox 97.7 F 64 20 129/71 95 05/24/19 02:00 05/24/19 09:15 05/24/19 09:15 05/24/19 09:15 05/24/19 09:00 Heart - S1, S2, RRR Lungs - decreased air entry bibasally Abdomen - High BMI, abdominal wall edema. Non-tender. Bowel Sounds normal. Extremities - pitting edema to pelvis/lower back Neuro - AAO x 3. Tone/Power normal all extremities. Laboratory Results - last 24 hr 05/21/19 05/22/19 05/23/19 18:00 06:37 22:16 Sodium Potassium Chloride Carbon Dioxide Anion Gap BUN Creatinine Est GFR (CKD-EPI)AfAm Est GFR (CKD-EPI)NonAf POC Glucometer 112 Random Glucose Calcium Phosphorus Magnesium Total Bilirubin AST ALT Alkaline Phosphatase Total Protein Albumin TOM Screen Negative Double Strand DNA Ab <1 Hep A IgM Ab Confirm Negative Hepatitis A Ab Total Positive H Hep Bs Antigen Negative Hep Bs Antibody Non reactive Hep B Core Total Ab Negative Hep B Core IgM Ab Negative Hepatitis Be Antibody Negative Hepatitis Be Antigen Negative 05/24/19 05/24/19 05/24/19 05:38 06:10 11:37 Sodium 140 Potassium 4.3 Chloride 107 Carbon Dioxide 24 Anion Gap 9 BUN 48.3 H Creatinine 1.8 H Est GFR (CKD-EPI)AfAm 44.78 Est GFR (CKD-EPI)NonAf 38.63 POC Glucometer 105 109 Random Glucose 99 Calcium 8.6 Phosphorus 4.8 Magnesium 1.8 Total Bilirubin 0.7 AST 42 H ALT 34 Alkaline Phosphatase 152 H Total Protein 6.4 Albumin 2.8 L TOM Screen Double Strand DNA Ab Hep A IgM Ab Confirm Hepatitis A Ab Total Hep Bs Antigen Hep Bs Antibody Hep B Core Total Ab Hep B Core IgM Ab Hepatitis Be Antibody Hepatitis Be Antigen Current Medications Generic Name Dose Route Start Last Admin Trade Name Freq PRN Reason Stop Dose Admin Aspirin 81 mg 05/22/19 10:00 05/24/19 10:09 Asa - PO 81 mg DAILY [facility] Administration Carvedilol 6.25 mg 05/23/19 08:46 05/24/19 10:09 Coreg - PO 6.25 mg BID [facility] Administration Furosemide 80 mg 05/23/19 10:45 05/24/19 06:04 Lasix Injection - IVPUSH 80 mg BID@0600,1400 [facility] Administration Heparin Sodium (Porcine) 5,000 unit 05/21/19 14:00 05/24/19 13:51 Heparin - SQ 5,000 unit TID [facility] Administration Insulin Aspart 1 vial 05/21/19 16:30 05/24/19 11:46 Novolog Vial Sliding Scale - SQ Not Given ACHS [facility] Protocol Levothyroxine Sodium 25 mcg 05/22/19 07:00 05/24/19 06:45 Synthroid - PO 25 mcg 0700 [facility] Administration Home Medications Medication Instructions Recorded Enalapril Maleate [Vasotec -] 10 mg PO DAILY 05/18/19 Furosemide 20 mg PO DAILY 05/18/19 Levothyroxine [Synthroid -] 25 mcg PO DAILY 05/18/19 Metformin HCl [Glucophage] 1,000 mg PO BID 05/18/19 Aspirin [ASA -] 81 mg PO DAILY 05/21/19 Carvedilol 6.25 mg PO BID 05/21/19 ASSESSMENT AND PLAN: 63 year old male with history of morbid obesity, HTN, DM 2, Hypothyroidism, presents with LE, scrotal, abdominal wall swelling with associated SOB on exertion. No CP/palpitations. 1. Acute Systolic CHF decompensation - newly diagnosed CXR - congestion BNP 6982 Abdo US - Ascites, R pleural effusion, Hepatomegaly Echo - LVH, EF 40-45%, moderate TR Doppler negative for DVT bilateral LE. Baseline elevation in Troponin likely sec to CHF - troponin flat, no evidence of ACS Tele - NSR, PVCs, NSVT Continue IV Lasix 80mg BID Cardiology following. Will eventually require MPI and outpatient PSG to exclude BRITT. 2. L Renal Mass, incidental finding For Urology work-up as out-patient, likely Nephrectomy once stabilized and optimized from Cardiology perspective. Urology follow up. 3. CIARA vs CKD 3 Possible Cardiorenal syndrome Stable Creat, will monitor as diuresis continues Serologic work-up for CIARA vs CKD pending. Nephrology following. 4. HTN - continue Coreg. enalapril held due to CIARA. 5. DM 2 - maintain on Novolog sliding scale. 6. Hypothyroidsm - continue synthroid. 7. Hypomagnesemia - repleted, will monitor. DVT Px - Heparin SQ Visit type - Emergency Visit Emergency Visit: Yes ED Registration Date: 05/21/19 Care time: The patient presented to the Emergency Department on the above date and was hospitalized for further evaluation of their emergent condition. - New Patient This patient is new to me today: No - Critical Care Critical Care patient: No - Discharge Referral Referred to [facility] Med P.C.: No
[2019-05-25] MEDS: LEVOTHYROXINE NA 25 MCG TABLET (FP) PO SCH (06:07)
[2019-05-25] MEDS: HEPARIN NA (PORCINE) 5,000 UNITS/ML 1ML VIAL SQ SCH ×3 (06:07→22:53)
[2019-05-25] MEDS: FUROSEMIDE 40 MG/4 ML INJECTABLE VIAL IVPUSH SCH ×2 (06:07→14:19)
[2019-05-25] MEDS: INSULIN SLIDING SCALE (NOVOLOG) 1 VIAL SQ SCH ×4 (06:09→22:58)
[2019-05-25 06:54] LABS: ALBUMIN 2.7 g/dl (3.4-5.0); BILIRUBIN,TOTAL 0.8 mg/dL (0.2-1); BLOOD UREA NITROGEN 46.9 mg/dL (7-18); CALCIUM 8.7 mg/dL (8.5-10.1); CREATININE 1.7 mg/dL (0.55-1.3); PHOSPHOROUS 4.7 mg/dL (2.5-4.9); POTASSIUM 4.2 mmol/L (3.5-5.1); TOT PROT 6.4 g/dl (6.4-8.2)
[2019-05-25] MEDS: CARVEDILOL 6.25 MG TABLET (FP) PO SCH ×3 (07:57→22:53)
[2019-05-25] MEDS ORDERED: REGADENOSON 0.4 MG/5 ML PRE-FILLED SYRINGE IVPUSH ONE ×2 (10:06→10:15)
--- NOTE | 2019-05-25 11:38 | PN ---
Progress Note, Physician History of Present Illness: Pt seen and examined at bedside. He is awake and alert. He is making urine and loosing weight. He feels that the edema is improving. - Current Medication List Current Medications: Active Medications Aspirin (Asa -) 81 mg PO DAILY [facility] Last Admin: 05/24/19 10:09 Dose: 81 mg Carvedilol (Coreg -) 6.25 mg PO BID [facility] Last Admin: 05/25/19 07:57 Dose: 6.25 mg Furosemide (Lasix Injection -) 80 mg IVPUSH BID@0600,1400 [facility] Last Admin: 05/25/19 06:07 Dose: Not Given Heparin Sodium (Porcine) (Heparin -) 5,000 unit SQ TID [facility] Last Admin: 05/25/19 06:07 Dose: 5,000 unit Insulin Aspart (Novolog Vial Sliding Scale -) 1 vial SQ ACHS [facility]; Protocol Last Admin: 05/25/19 06:09 Dose: Not Given Levothyroxine Sodium (Synthroid -) 25 mcg PO 0700 [facility] Last Admin: 05/25/19 06:07 Dose: 25 mcg - Objective Vital Signs: Vital Signs Temperature 98 F 05/25/19 08:22 Pulse Rate 68 05/25/19 08:22 Respiratory Rate 18 05/25/19 08:22 Blood Pressure 149/89 05/25/19 08:22 O2 Sat by Pulse Oximetry (%) 96 05/24/19 21:00 Constitutional: Yes: Calm Eyes: Yes: Conjunctiva Clear HENT: Yes: Atraumatic Neck: Yes: Supple Cardiovascular: Yes: S1, S2 Respiratory: Yes: CTA Bilaterally Gastrointestinal: Yes: Soft Genitourinary: Yes: WNL Musculoskeletal: Yes: WNL Edema: Yes Edema: LLE: 3+, RLE: 3+ Neurological: Yes: Oriented Psychiatric: Yes: Oriented Labs: CBC, BMP 05/23/19 05:24 05/25/19 05:59 INR, PTT INR 1.18 (0.83-1.09) H 05/22/19 06:37 Problem List - Problems (1) Renal mass Code(s): N28.89 - OTHER SPECIFIED DISORDERS OF KIDNEY AND URETER (2) Proteinuria Code(s): R80.9 - PROTEINURIA, UNSPECIFIED (3) CIARA (acute kidney injury) Code(s): N17.9 - ACUTE KIDNEY FAILURE, UNSPECIFIED (4) CHF exacerbation Code(s): I50.9 - HEART FAILURE, UNSPECIFIED Qualifiers: Heart failure type: unspecified Qualified Code(s): I50.9 - Heart failure, unspecified (5) Hypertension Code(s): I10 - ESSENTIAL (PRIMARY) HYPERTENSION Qualifiers: Hypertension type: essential hypertension Qualified Code(s): I10 - Essential (primary) hypertension (6) Fluid overload Code(s): E87.70 - FLUID OVERLOAD, UNSPECIFIED Qualifiers: Hypervolemia type: other Qualified Code(s): E87.79 - Other fluid overload (7) Pedal edema Code(s): R60.0 - LOCALIZED EDEMA Assessment/Plan Current Medications Generic Name Dose Route Start Last Admin Trade Name Liborio PRN Reason Stop Dose Admin Aspirin 81 mg 05/22/19 10:00 05/24/19 10:09 Asa - PO 81 mg DAILY [facility] Administration Carvedilol 6.25 mg 05/23/19 08:46 05/25/19 07:57 Coreg - PO 6.25 mg BID [facility] Administration Furosemide 80 mg 05/23/19 10:45 05/25/19 06:07 Lasix Injection - IVPUSH Not Given BID@0600,1400 [facility] Heparin Sodium (Porcine) 5,000 unit 05/21/19 14:00 05/25/19 06:07 Heparin - SQ 5,000 unit TID [facility] Administration Insulin Aspart 1 vial 05/21/19 16:30 05/25/19 06:09 Novolog Vial Sliding Scale - SQ Not Given ACHS [facility] Protocol Levothyroxine Sodium 25 mcg 05/22/19 07:00 05/25/19 06:07 Synthroid - PO 25 mcg 0700 [facility] Administration Impression 1. CIARA 2. proteinuria - nephrotic 3. fluid overload 4. chf - moderately reduced systolic function 5. hypothryoidism 6. renal mass suspicious for malignancy 7. DM 8. HTN Plan - cont with IV lasix - follow serologies - monitor daily weights, he is loosing - check lytes le - renal mass still needs eval once stable, urology on board
--- NOTE | 2019-05-25 11:52 | PN ---
Progress Note, Physician Chief Complaint: sob, swelling History of Present Illness: scrotal edema almost back to normal. legs still swollen. urinating a lot after lasix. walked halls--NO SOB no palpit, cp, syncope - Current Medication List Current Medications: Active Medications Aspirin (Asa -) 81 mg PO DAILY [facility] Last Admin: 05/24/19 10:09 Dose: 81 mg Carvedilol (Coreg -) 6.25 mg PO BID [facility] Last Admin: 05/25/19 07:57 Dose: 6.25 mg Furosemide (Lasix Injection -) 80 mg IVPUSH BID@0600,1400 [facility] Last Admin: 05/25/19 06:07 Dose: Not Given Heparin Sodium (Porcine) (Heparin -) 5,000 unit SQ TID [facility] Last Admin: 05/25/19 06:07 Dose: 5,000 unit Insulin Aspart (Novolog Vial Sliding Scale -) 1 vial SQ ACHS [facility]; Protocol Last Admin: 05/25/19 06:09 Dose: Not Given Levothyroxine Sodium (Synthroid -) 25 mcg PO 0700 [facility] Last Admin: 05/25/19 06:07 Dose: 25 mcg - Objective Vital Signs: Vital Signs Temperature 98 F 05/25/19 08:22 Pulse Rate 68 05/25/19 08:22 Respiratory Rate 18 05/25/19 08:22 Blood Pressure 149/89 05/25/19 08:22 O2 Sat by Pulse Oximetry (%) 96 05/24/19 21:00 Constitutional: Yes: Well Nourished, No Distress, Calm Cardiovascular: Yes: Regular Rate and Rhythm, JVD (EJ dist), S1, S2. No: Gallop , Murmur Respiratory: Yes: Regular, CTA Bilaterally. No: Accessory Muscle Use, Rales, Wheezes Extremities: No: Cold Edema: Yes (2+ pretib) Neurological: Yes: Alert, Oriented Psychiatric: No: Agitated Labs: CBC, BMP 05/23/19 05:24 05/25/19 05:59 INR, PTT INR 1.18 (0.83-1.09) H 05/22/19 06:37 Assessment/Plan cxr: mild congestion ecg: sr, nl intervals no ischemic changes echo 05/2019: lvh, mod dec lvef, mild dec rv fcn, mild rve, yue, mild mr, mod tr , nl rvsp tele: NSR a/p: 63 m hx htn, dm, chf here with sob, le edema. acute on chronic systolic chf: -mod dec lvef on echo here, global (40-45%) -no prior studies available for comparison. ? prior ischemia eval. -possibly HTN or DM cardiomyopathy, r/o BRITT (outpt PSG). no angina history--MPI today (defer cath or consideration of PCI until renal mass evaluated fully, and no invasive procedures are on the horizon) -presented with substantial le, scrotal, abdominal wall edema--not improving -pt was on lasix 40 po qd at home. wt not responding to lasix 40 iv bid here, bun/creat worsening--suspect ineffective diuresis. increased to 80 iv bid on 05/23. good wt response. creat progressively improving on this dose-- continue lasix 80 iv BID -add spironolactone once renal fxn stabilizes -? ready for discharge tomorrow CV-vasquez (on po lasix 100 bid)--outpt f/u planned with us 1-2 wks -no signs acs htn: -target <130/80 -close to goals, up today sec to carvedilol held for stress test--observe trend. same meds dm: -A1c 6's -manage per primary elevated trop: -borderline trop elevation with flat trend, not c/w acs = rather sec to CHF CIARA, renal mass: -renal following -no baseline available, could be ckd vs cardiorenal. monitor with effective diuresis.
[2019-05-25] MEDS: ASPIRIN 81 MG CHEWABLE TABLETS PO SCH (12:30)
--- NOTE | 2019-05-25 12:47 | PN ---
Teaching Attending Note Name of Resident: Ramesh Avilez ATTENDING PHYSICIAN STATEMENT I saw and evaluated the patient. I reviewed the resident's note and discussed the case with the resident. I agree with the resident's findings and plan as documented. SUBJECTIVE: Feeling less SOB. Scrotal edema significantly improved. Some improvement in LE edema. No further lightheadedness on ambulation. OBJECTIVE: Afebrile, Hemodynamically Stable. Orthostatic vitals negative. Last Vital Signs Temp Pulse Resp BP Pulse Ox 98 F 68 18 149/89 99 05/25/19 08:22 05/25/19 08:22 05/25/19 08:22 05/25/19 08:22 05/25/19 09:00 Heart - S1, S2, RRR Lungs - decreased air entry bibasally Abdomen - High BMI, soft, non-tender. Bowel Sounds normal. Extremities - pitting edema LEs. Scrotal edema improved. Neuro - AAO x 3. Tone/Power normal all extremities. Laboratory Results - last 24 hr 05/24/19 05/24/19 05/25/19 17:21 23:03 05:42 Sodium Potassium Chloride Carbon Dioxide Anion Gap BUN Creatinine Est GFR (CKD-EPI)AfAm Est GFR (CKD-EPI)NonAf POC Glucometer 113 116 106 Random Glucose Calcium Phosphorus Magnesium Total Bilirubin AST ALT Alkaline Phosphatase Total Protein Albumin 05/25/19 05/25/19 05:59 12:14 Sodium 139 Potassium 4.2 Chloride 107 Carbon Dioxide 25 Anion Gap 7 L BUN 46.9 H Creatinine 1.7 H Est GFR (CKD-EPI)AfAm 47.98 Est GFR (CKD-EPI)NonAf 41.40 POC Glucometer 91 Random Glucose 103 Calcium 8.7 Phosphorus 4.7 Magnesium 2.0 Total Bilirubin 0.8 AST 40 H ALT 33 Alkaline Phosphatase 148 H Total Protein 6.4 Albumin 2.7 L Current Medications Generic Name Dose Route Start Last Admin Trade Name Freq PRN Reason Stop Dose Admin Aspirin 81 mg 05/22/19 10:00 05/25/19 12:30 Asa - PO 81 mg DAILY [facility] Administration Carvedilol 6.25 mg 05/23/19 08:46 05/25/19 11:54 Coreg - PO Not Given BID [facility] Furosemide 80 mg 05/23/19 10:45 05/25/19 06:07 Lasix Injection - IVPUSH Not Given BID@0600,1400 [facility] Heparin Sodium (Porcine) 5,000 unit 05/21/19 14:00 05/25/19 06:07 Heparin - SQ 5,000 unit TID [facility] Administration Insulin Aspart 1 vial 05/21/19 16:30 05/25/19 12:16 Novolog Vial Sliding Scale - SQ Not Given ACHS [facility] Protocol Levothyroxine Sodium 25 mcg 05/22/19 07:00 05/25/19 06:07 Synthroid - PO 25 mcg 0700 [facility] Administration Home Medications Medication Instructions Recorded Enalapril Maleate [Vasotec -] 10 mg PO DAILY 05/18/19 Furosemide 20 mg PO DAILY 05/18/19 Levothyroxine [Synthroid -] 25 mcg PO DAILY 05/18/19 Metformin HCl [Glucophage] 1,000 mg PO BID 05/18/19 Aspirin [ASA -] 81 mg PO DAILY 05/21/19 Carvedilol 6.25 mg PO BID 05/21/19 ASSESSMENT AND PLAN: 63 year old male with history of morbid obesity, HTN, DM 2, Hypothyroidism, presents with LE, scrotal, abdominal wall swelling with associated SOB on exertion. No CP/palpitations. He was found to have generalized anasarca with depressed EF 40-45% on Echo. 1. Acute Systolic CHF decompensation - newly diagnosed CXR - congestion BNP 6982 Abdo US - Ascites, R pleural effusion, Hepatomegaly Echo - LVH, EF 40-45%, moderate TR Doppler negative for DVT bilateral LE. Baseline elevation in Troponin likely sec to CHF - troponin flat, no evidence of ACS Tele - NSR, PVCs, NSVT Continue IV Lasix 80mg BID Scheduled MPI 05/25/19 As per Cardio, aim for DC 05/26/19 pending MPI result, on 100mg PO Lasix BID and outpatient PSG to exclude BRITT. Cardio may introduce Spironolactone at some point depending on how renal function equilibrates. 2. L Renal Mass, incidental finding Seen by Urology - further work-up as out-patient, likely Nephrectomy once stabilized and optimized from Cardiology perspective. Urology follow up. 3. CIARA vs CKD 3 - Creat Stable at 1.7 Possible Cardiorenal syndrome Stable Creat, will monitor as diuresis continues Serologic work-up for CIARA vs CKD pending. Nephrology following. 4. HTN - continue Coreg. Enalapril held due to CIARA. 5. DM 2 - maintain on Novolog sliding scale. 6. Hypothyroidsm - continue Synthroid. 7. Hypomagnesemia - repleted, will monitor. DVT Px - Heparin SQ
--- NOTE | 2019-05-25 14:01 | PN ---
Physical Exam: SUBJECTIVE: Patient seen and examined at the bedside. Stated that he feels good. Endorsed that the swelling in his legs and scrotum are decreased. Denies cp, sob, palpitations, abd pain, n/v/c/d, fever, chills, headaches, dizziness, lightheadedness, visual changes. OBJECTIVE: Vital Signs Period Temp Pulse Resp BP Sys/Bhatti Pulse Ox Last 24 Hr 97.7 F-98.1 F 61-70 18-20 141-164/75-99 96-99 GENERAL: The patient is awake, alert, and fully oriented, in no acute distress. Pleasant HEAD: Normal with no signs of trauma. EYES: PERRL, extraocular movements intact, sclera anicteric, conjunctiva clear. ENT: Oropharynx clear without exudates, moist mucous membranes. LUNGS: Breath sounds equal, diminished, mild bibasilar crackles, no wheezes, no accessory muscle use. HEART: Regular rate and rhythm, S1, S2 without murmur, rub. ABDOMEN: Soft, nontender, non-distended, normoactive bowel sounds, no guarding, no rebound, no masses. EXTREMITIES: 2+ pulses, warm, well-perfused, 3+ edema [facility] up the leg. GENITAL: scrotal edema present NEUROLOGICAL: Cranial nerves II through XII grossly intact. 5/5 muscle strength bilaterally upper and lower extremities. PSYCH: Normal mood, normal affect. Laboratory Results - last 24 hr 05/24/19 05/24/19 05/25/19 17:21 23:03 05:42 Sodium Potassium Chloride Carbon Dioxide Anion Gap BUN Creatinine Est GFR (CKD-EPI)AfAm Est GFR (CKD-EPI)NonAf POC Glucometer 113 116 106 Random Glucose Calcium Phosphorus Magnesium Total Bilirubin AST ALT Alkaline Phosphatase Total Protein Albumin 05/25/19 05/25/19 05:59 12:14 Sodium 139 Potassium 4.2 Chloride 107 Carbon Dioxide 25 Anion Gap 7 L BUN 46.9 H Creatinine 1.7 H Est GFR (CKD-EPI)AfAm 47.98 Est GFR (CKD-EPI)NonAf 41.40 POC Glucometer 91 Random Glucose 103 Calcium 8.7 Phosphorus 4.7 Magnesium 2.0 Total Bilirubin 0.8 AST 40 H ALT 33 Alkaline Phosphatase 148 H Total Protein 6.4 Albumin 2.7 L Active Medications Generic Name Dose Route Start Last Admin Trade Name Freq PRN Reason Stop Dose Admin Aspirin 81 mg 05/22/19 10:00 05/25/19 12:30 Asa - PO 81 mg DAILY TASHI Administration Carvedilol 6.25 mg 05/23/19 08:46 05/25/19 11:54 Coreg - PO Not Given BID TASHI Furosemide 80 mg 05/23/19 10:45 05/25/19 06:07 Lasix Injection - IVPUSH Not Given BID@0600,1400 [facility] Heparin Sodium (Porcine) 5,000 unit 05/21/19 14:00 05/25/19 06:07 Heparin - SQ 5,000 unit TID TASHI Administration Insulin Aspart 1 vial 05/21/19 16:30 05/25/19 12:16 Novolog Vial Sliding Scale - SQ Not Given ACHS [facility] Protocol Levothyroxine Sodium 25 mcg 05/22/19 07:00 05/25/19 06:07 Synthroid - PO 25 mcg 0700 TASHI Administration ASSESSMENT/PLAN: IMAGING - Echo noting mild LVH, LV systolic function moderately reduced, EF 40-45%, Rv dilated, RV function reduced, L atrium/R atrium moderately dilated, mild mitral regurg, moderate tricuspid regurg - Right upper quadrant abdominal ultrasound noting hepatomegaly and heterogeneous liver, R pleural effusion, ascites - CXR noting large heart and congestive changes ASSESSMENT/PLAN: Tomas Henao is a 63 year old male with history of hypertension, diabetes mellitus (non insulin dependent), hypothyroidism, presents with complaint of swelling to the lower extremities, scrotum, and abdomen. New Onset Heart Failure - diuresis with Lasix 80mg IV BID as per cardiology, will be discharged on 100mg PO bid - Daily weights - Strict intake, output - Fluid restriction 1L/24 hours - Sodium restriction diet - Cardiology consulted, recs appreciated - MPI showing negative pharmacologic stress test. Nuclear noting small area of infrobasal fixed defect compatible with diaphragmatic attenuation and low normal LV systolic function - troponins with flat trend - Hepatitis studies negative - urology noting that scrotal edema should improve with diuresis - physical therapy - will need outpatient sleep study CIARA on CKD - CRE trending down - renal ultrasound with no hydro and no post-void residual - UA with 3+ protein and 1+ blood - nephrology consulted, recs appreciated - renal workup pending - holding enalapril in setting of diuresis L renal mass - as noted on renal U/S - will evaluate with CT with contrast when patient more stable and CRE improves - Urology consulted, recs appreciated Enlarged Prostate - as noted on bladder U/S - will require outpatient urology f/u Hyperbilirubinemia - total bilirubin 1.4, continue to trend - direct 0.2 - RUQ U/s as above Hypertension - Continue home Carvedilol, hold enalapril until CRE stabilizes - hold increase of meds due to lightheadedness episode Diabetes mellitus - HbA1c 6.4 - Holding home Metformin. - ISS - BGMS ACHS Hypothyroid - Continue home Synthroid FEN - No IV fluids indicated. 1L fluid restriction/ 24 hours - continue to monitor electrolytes and replete as necessary - Sodium restricted diet, diabetic modification Prophylaxis - Heparin 5000units subq TID Disposition - continue to monitor on telemetry Visit type - Emergency Visit Emergency Visit: Yes ED Registration Date: 05/21/19 Care time: The patient presented to the Emergency Department on the above date and was hospitalized for further evaluation of their emergent condition. - New Patient This patient is new to me today: No - Critical Care Critical Care patient: No
[2019-05-26] MEDS: FUROSEMIDE 40 MG/4 ML INJECTABLE VIAL IVPUSH SCH (06:02)
[2019-05-26] MEDS: HEPARIN NA (PORCINE) 5,000 UNITS/ML 1ML VIAL SQ SCH ×2 (06:02→14:55)
[2019-05-26] MEDS: LEVOTHYROXINE NA 25 MCG TABLET (FP) PO SCH (06:02)
[2019-05-26 07:10] LABS: ALBUMIN 2.8 g/dl (3.4-5.0); BILIRUBIN,TOTAL 0.8 mg/dL (0.2-1); BLOOD UREA NITROGEN 39.7 mg/dL (7-18); CALCIUM 8.7 mg/dL (8.5-10.1); CREATININE 1.6 mg/dL (0.55-1.3); MAGNESIUM 1.9 mg/dL (1.8-2.4); POTASSIUM 4.2 mmol/L (3.5-5.1); TOT PROT 6.5 g/dl (6.4-8.2)
[2019-05-26] MEDS: INSULIN SLIDING SCALE (NOVOLOG) 1 VIAL SQ SCH ×2 (09:17→12:17)
[2019-05-26] MEDS: CARVEDILOL 6.25 MG TABLET (FP) PO SCH (09:18)
[2019-05-26] MEDS: ASPIRIN 81 MG CHEWABLE TABLETS PO SCH (09:18)
--- NOTE | 2019-05-26 11:45 | PN ---
Progress Note (short form) - Note Progress Note: s: sob, edema improving. no chest pain, palps, dizziness Current Medications Aspirin (Asa -) 81 mg PO DAILY [facility] Last Admin: 05/26/19 09:18 Dose: 81 mg Carvedilol (Coreg -) 6.25 mg PO BID [facility] Last Admin: 05/26/19 09:18 Dose: 6.25 mg Furosemide (Lasix Injection -) 80 mg IVPUSH BID@0600,1400 [facility] Last Admin: 05/26/19 06:02 Dose: 80 mg Heparin Sodium (Porcine) (Heparin -) 5,000 unit SQ TID [facility] Last Admin: 05/26/19 06:02 Dose: 5,000 unit Insulin Aspart (Novolog Vial Sliding Scale -) 1 vial SQ ACHS [facility]; Protocol Last Admin: 05/26/19 09:17 Dose: Not Given Levothyroxine Sodium (Synthroid -) 25 mcg PO 0700 [facility] Last Admin: 05/26/19 06:02 Dose: 25 mcg Vital Signs Period Temp Pulse Resp BP Sys/Bhatti Pulse Ox Last 24 Hr 97.4 F-98.5 F 60-89 18-20 142-156/78-96 98-99 Constitutional: Yes: Well Nourished, No Distress, Calm Cardiovascular: Yes: Regular Rate and Rhythm, JVD (EJ dist), S1, S2. No: Gallop , Murmur Respiratory: Yes: Regular, CTA Bilaterally. No: Accessory Muscle Use, Rales, Wheezes Extremities: No: Cold Edema: Yes (2+ pretib) Neurological: Yes: Alert, Oriented Psychiatric: No: Agitated Assessment/Plan cxr: mild congestion ecg: sr, nl intervals no ischemic changes echo 05/2019: lvh, mod dec lvef, mild dec rv fcn, mild rve, yue, mild mr, mod tr , nl rvsp mibi 05/2019 diaphragmatic attenuation, no ischemia, low nl EF 53% tele: NSR a/p: 63 m hx htn, dm, chf here with sob, le edema. acute on chronic systolic chf: -mod dec lvef on echo here, global (40-45%) -no prior studies available for comparison. ? prior ischemia eval. -possibly HTN or DM cardiomyopathy, r/o BRITT (outpt PSG). no angina history - mibi no ischemia -pt was on lasix 40 po qd at home, diuresed effectively with lasix 80 mg IV BID here. wt down, Cr stable -add spironolactone, ACEI once renal fxn stabilizes - check Cr as outpatient in 1-2 weeks - change lasix to 100 mg PO BID - stable for dc from cardiac perspective htn: -target <130/80 -close to goals, up today sec to carvedilol held for stress test--observe trend. same meds dm: -A1c 6's -manage per primary elevated trop: -borderline trop elevation with flat trend, not c/w acs = rather sec to CHF CIARA, renal mass: -renal following -no baseline available, could be ckd vs cardiorenal. monitor with effective diuresis.
[2019-05-26] MEDS ORDERED: FUROSEMIDE 40 MG TABLET (FP) PO SCH (14:00)
[2019-05-26 15:07] VITALS: BP 131/65; PULSE 56; TEMP 98.2
--- NOTE | 2019-05-26 15:15 | PN ---
Teaching Attending Note Name of Resident: Ramesh Avilez ATTENDING PHYSICIAN STATEMENT I saw and evaluated the patient. I reviewed the resident's note and discussed the case with the resident. I agree with the resident's findings and plan as documented. SUBJECTIVE: No fever or chills. No ENGLISH , no SOB , he feels much better OBJECTIVE: NAD Cv : RRR Lungs: CTAB Ext : 2+ edema on legs ASSESSMENT AND PLAN: 63 y/o man with h/o hypothyroidism, HTN, DM who presented with LE edema and SOband was diagnosed with acute systolic heart failure. 1- Acute systolic heart failure 2- renal mass 3- + M spike on SPEP 4- CKD . 5- Hepatomegaly, ascitis 6- prostatic enlargement 7- DM . 8- fixed ischemia on Stress test plan : - resume ACEI at dc . d/w Dr. Loza - f/u with renal and uro for the renal mass - f/u with uro fro the prostatic enlargement - f/u with GI for hepatomegalyand ascisits . likely due to heart failrue - M spike noted. will have him f/u closely with Heme - change metformin to januvia due to CHF. cr cl > 60%. 100 mg daily - f/u with card d/w family. Dr. Matthews to discuss M spike results and Recs.
--- NOTE | 2019-05-26 15:54 | PN ---
Progress Note, Physician History of Present Illness: Pt seen and examined at bedside. He is awake and alert. He denies shortness of breath. He feels that edema is improving. - Current Medication List Current Medications: Active Medications Aspirin (Asa -) 81 mg PO DAILY [facility] Last Admin: 05/26/19 09:18 Dose: 81 mg Carvedilol (Coreg -) 6.25 mg PO BID [facility] Last Admin: 05/26/19 09:18 Dose: 6.25 mg Furosemide (Lasix -) 100 mg PO BID@0600,1400 [facility] Last Admin: 05/26/19 14:54 Dose: 100 mg Heparin Sodium (Porcine) (Heparin -) 5,000 unit SQ TID [facility] Last Admin: 05/26/19 14:55 Dose: 5,000 unit Insulin Aspart (Novolog Vial Sliding Scale -) 1 vial SQ ACHS [facility]; Protocol Last Admin: 05/26/19 12:17 Dose: Not Given Levothyroxine Sodium (Synthroid -) 25 mcg PO 0700 [facility] Last Admin: 05/26/19 06:02 Dose: 25 mcg - Objective Vital Signs: Vital Signs Temperature 98.2 F 05/26/19 14:20 Pulse Rate 56 L 05/26/19 14:20 Respiratory Rate 20 05/26/19 14:20 Blood Pressure 131/65 05/26/19 14:20 O2 Sat by Pulse Oximetry (%) 98 05/26/19 09:00 Constitutional: Yes: Calm Eyes: Yes: Conjunctiva Clear HENT: Yes: Atraumatic Neck: Yes: Supple Cardiovascular: Yes: S1, S2 Respiratory: Yes: CTA Bilaterally Gastrointestinal: Yes: Normal Bowel Sounds, Soft Genitourinary: Yes: WNL Musculoskeletal: Yes: WNL Edema: Yes Edema: LLE: 2+, RLE: 2+ Neurological: Yes: Oriented Psychiatric: Yes: Oriented Labs: CBC, BMP 05/23/19 05:24 05/26/19 06:15 INR, PTT INR 1.18 (0.83-1.09) H 05/22/19 06:37 Problem List - Problems (1) Renal mass Code(s): N28.89 - OTHER SPECIFIED DISORDERS OF KIDNEY AND URETER (2) Proteinuria Code(s): R80.9 - PROTEINURIA, UNSPECIFIED (3) CIARA (acute kidney injury) Code(s): N17.9 - ACUTE KIDNEY FAILURE, UNSPECIFIED (4) CHF exacerbation Code(s): I50.9 - HEART FAILURE, UNSPECIFIED Qualifiers: Heart failure type: unspecified Qualified Code(s): I50.9 - Heart failure, unspecified (5) Hypertension Code(s): I10 - ESSENTIAL (PRIMARY) HYPERTENSION Qualifiers: Hypertension type: essential hypertension Qualified Code(s): I10 - Essential (primary) hypertension (6) Fluid overload Code(s): E87.70 - FLUID OVERLOAD, UNSPECIFIED Qualifiers: Hypervolemia type: other Qualified Code(s): E87.79 - Other fluid overload (7) Pedal edema Code(s): R60.0 - LOCALIZED EDEMA Assessment/Plan Current Medications Generic Name Dose Route Start Last Admin Trade Name Michiq PRN Reason Stop Dose Admin Aspirin 81 mg 05/22/19 10:00 05/26/19 09:18 Asa - PO 81 mg DAILY TASHI Administration Carvedilol 6.25 mg 05/23/19 08:46 05/26/19 09:18 Coreg - PO 6.25 mg BID TASHI Administration Furosemide 100 mg 05/26/19 14:00 05/26/19 14:54 Lasix - PO 100 mg BID@0600,1400 TASHI Administration Heparin Sodium (Porcine) 5,000 unit 05/21/19 14:00 05/26/19 14:55 Heparin - SQ 5,000 unit TID TASHI Administration Insulin Aspart 1 vial 05/21/19 16:30 05/26/19 12:17 Novolog Vial Sliding Scale - SQ Not Given ACHS [facility] Protocol Levothyroxine Sodium 25 mcg 05/22/19 07:00 05/26/19 06:02 Synthroid - PO 25 mcg 0700 TASHI Administration Laboratory Tests 05/22/19 05/22/19 06:37 06:37 DASH M-Junior 0.9 H TOM Screen Negative c-ANCA Pending Proteinase 3 (PR3) Pending p-ANCA Pending Atypical p-ANCA Pending Myeloperoxidase Ab Pending Double Strand DNA Ab <1 Impression 1. CIARA 2. proteinuria - nephrotic 3. fluid overload 4. chf - moderately reduced systolic function 5. hypothryoidism 6. renal mass suspicious for malignancy 7. DM 8. HTN 9. m-spike positive Plan - cont lasix - oncology eval for m-spike - serologies pending - systems administrator stabilizing - will need outpt follow up - discussed with hospitalist team - renal mass still needs eval once stable, urology on board
[2019-05-26 18:07] LABS: ATYPICAL pANCA <1:20 titer (Neg:<1:20); C-ANCA <1:20 titer (Neg:<1:20)
--- NOTE | 2019-05-26 18:17 | DS ---
Physical Exam: SUBJECTIVE: Patient seen and examined at the bedside. Patient states that he feels well and endorses decreased swelling of his legs and scrotum. Denies cp, sob, cough, palpitations, abd pain, n/v/c/d, headaches, dizziness, lightheadedness, dysuria, hematuria. OBJECTIVE: Vital Signs Period Temp Pulse Resp BP Sys/Bhatti Pulse Ox Last 24 Hr 98.1 F-98.5 F 56-69 18-20 131-156/65-96 98-99 PHYSICAL EXAM GENERAL: The patient is awake, alert, and fully oriented, in no acute distress. Pleasant HEAD: Normal with no signs of trauma. EYES: PERRL, extraocular movements intact, sclera anicteric, conjunctiva clear. ENT: Oropharynx clear without exudates, moist mucous membranes. LUNGS: Breath sounds equal, diminished, mild bibasilar crackles, no wheezes, no accessory muscle use. HEART: Regular rate and rhythm, S1, S2 without murmur, rub. ABDOMEN: Soft, nontender, non-distended, normoactive bowel sounds, no guarding, no rebound, no masses. EXTREMITIES: 2+ pulses, warm, well-perfused, 2+ edema senior living up the leg. GENITAL: scrotal edema present NEUROLOGICAL: Cranial nerves II through XII grossly intact. 5/5 muscle strength bilaterally upper and lower extremities. PSYCH: Normal mood, normal affect. LABS Laboratory Results - last 24 hr 05/21/19 05/22/19 05/25/19 18:00 06:37 22:54 Sodium Potassium Chloride Carbon Dioxide Anion Gap BUN Creatinine Est GFR (CKD-EPI)AfAm Est GFR (CKD-EPI)NonAf POC Glucometer 112 Random Glucose Calcium Magnesium Total Bilirubin AST ALT Alkaline Phosphatase Total Protein Albumin c-ANCA <1:20 Proteinase 3 (PR3) <3.5 p-ANCA <1:20 Atypical p-ANCA <1:20 Myeloperoxidase Ab <9.0 HCV Quantitation Hcv not detected HCV RNA log copies/mL TNP 05/26/19 05/26/19 05/26/19 06:07 06:15 12:15 Sodium 140 Potassium 4.2 Chloride 106 Carbon Dioxide 27 Anion Gap 7 L BUN 39.7 H Creatinine 1.6 H Est GFR (CKD-EPI)AfAm 51.63 Est GFR (CKD-EPI)NonAf 44.55 POC Glucometer 94 99 Random Glucose 93 Calcium 8.7 Magnesium 1.9 Total Bilirubin 0.8 AST 32 ALT 32 Alkaline Phosphatase 142 H Total Protein 6.5 Albumin 2.8 L c-ANCA Proteinase 3 (PR3) p-ANCA Atypical p-ANCA Myeloperoxidase Ab HCV Quantitation HCV RNA log copies/mL HOSPITAL COURSE: Tomas Henao is a 63 year old male with history of hypertension, diabetes mellitus (non insulin dependent), hypothyroidism admitted for new onset congestive heart failure. Patient had echocardiogram performed which noted mild LVH, LV systolic function moderately reduced, EF 40-45, Rv dilated, RV function reduced, L atrium/R atrium moderately dilated, mild mitral regurg, moderate tricuspid regurg. Patient was started on Lasix and uptitrated to IV 80mg bid with good effect. Was seen by cardiology who recommended to have the patient start Lasix 100mg PO bid and to follow up in the outpatient clinic. Had MPI performed inpatient showing negative pharmacologic stress test. Nuclear noting small area of infrobasal fixed defect compatible with diaphragmatic attenuation and low normal LV systolic function. Patient encouraged to have fluid restriction, low salt diet, daily weights. Edema in legs, abdomen, and scrotum improved. Had CIARA on admission which improved with diuresis. Was seen by nephrology who recommended to continue diuresis and to follow up with nephrology outpatient. Will require repeat CRE in one week. Had renal workup done which showed IgM spike and will follow up with hematology outpatient. Patient was seen by urology for a CT performed that showed L renal mass and will have further investigation outpatient. In addition will be seen for enlarged prostate. Patient had elevated bilirubin on admission. On RUQ ultrasound showed hepatomegaly and heterogeneous liver, R pleural effusion, ascites. Patient will be seen by GI outpatient. Had elevated TSH with normal T4, will have repeat TSH in 4-6 weeks. Metformin was stopped as patient now with HF and switched to Januvia. Patient and family were spoken and advised of the plan to start Lasix 100mg bid , Januvia 100mg daily, and to follow up with PCP, cardiology, nephrology, urology, gastroenterology, hematology. Family and patient were in agreement and reiterated the plan. Patient was discharged in stable medical condition. Date of Admission:05/21/19 Date of Discharge: 05/26/19 Minutes to complete discharge: 35 Discharge Summary Problems reviewed: Yes Reason For Visit: ACUTE KIDNEY INJURY,ACUTE CHF,HYPERTENSION Condition: Improved - Instructions Diet, Activity, Other Instructions: You were admitted for increased amounts of swelling in your body which was due to your heart failure. You had an echocardiogram (ultrasound of the heart) which showed decreased function of your heart and increased size of the heart. You were seen by a fisher trawl net (heart doctor) who recommended that you continue on a medication to remove fluid from your body which you will continue to take outside of the hospital. You had a stress test (test to check the function of your heart) which showed low normal function of the heart. You are advised to follow up with a fisher trawl net in the outpatient clinic. You may have your doses of medication adjusted. MEDICATIONS STOP taking Metformin. START taking Januvia 100mg every day for your diabetes. START taking Lasix 100mg twice a day. You will take (1) 80mg pill and (1) 20mg pill in the morning and at night for a total of 100mg twice a day. Continue to take all of your other home medication as prescribed to you. REFERRALS Please follow up with your primary care doctor, Dr. Denny Heredia, within 1 week. Please follow up with the fisher trawl net, Dr. Robert Del Cid, within 1 week. Please follow up with the district or district office director, Dr. Ale Loza, within 2 week. Please follow up with the urologist, Dr. Edmond Singer, within 1 week. Please follow up with the software development intern, Dr. Avelino Kelly, within 2 week. Important: follow up with Dr. Perry from [facility] to evaluate the abnormal results in your blood work ( Donavan lange, ) to rule out blood cancer . see him in 1 week SPECIAL INSTRUCTIONS You will need to have repeat lab tests to check your kidneys, creatinine levels , within 1 week. Make sure to weight yourself daily and write down your weight. If you gain more than 3 pound in 1 day, please see your doctor. Avoid eating food with too much salt, avoid canned foods, and do not add salt to your meals. Avoid drinking too much water. You were found to have a mass on your kidney, you will need to follow up with a urologist (bladder, kidney doctor) to have that mass examined and to determine if any surgery needs to be performed on it. You were also noted to have an enlarged prostate which you should follow up with the urologist. You had a ultrasound which showed that you have some abnormalities of your liver and that your liver was enlarged. You are advised to follow up with a software development intern (stomach, liver, intestine doctor) for these findings. If you have any symptoms of shortness of breath, chest pain, increased swelling of your legs or other parts of the body, fevers, or any other general feelings of unwellness, please call 911 or go to your nearest emergency room. Referrals: Edmond Singer MD [Staff Physician] - 1 Week Denny Heredia MD [Primary Care Provider] - 1 Week Radhames Kelly DO [Staff Physician] - 2 Weeks Robert Del Cid MD [Staff Physician] - 1 Week Elliot Perry MD [Staff Physician] - 1 Week Ale Loza MD [Staff Physician] - 2 Weeks Disposition: HOME - Home Medications Comprehensive Discharge Medication List: Ambulatory Orders Enalapril Maleate [Vasotec -] 10 mg PO DAILY 05/18/19 Levothyroxine [Synthroid -] 25 mcg PO DAILY 05/18/19 Aspirin [ASA -] 81 mg PO DAILY 05/21/19 Carvedilol 6.25 mg PO BID 05/21/19 Furosemide [Lasix] 20 mg PO BID #60 tablet 05/26/19 Furosemide [Lasix] 80 mg PO BID #60 tablet 05/26/19 Sitagliptin Phosphate [Januvia] 100 mg PO DAILY #30 tablet 05/26/19 Problem List - Problems (1) Diabetes mellitus Code(s): E11.9 - TYPE 2 DIABETES MELLITUS WITHOUT COMPLICATIONS (2) Hepatomegaly Code(s): R16.0 - HEPATOMEGALY, NOT ELSEWHERE CLASSIFIED (3) Hypertension Code(s): I10 - ESSENTIAL (PRIMARY) HYPERTENSION Qualifiers: Hypertension type: essential hypertension Qualified Code(s): I10 - Essential (primary) hypertension (4) Hypothyroid Code(s): E03.9 - HYPOTHYROIDISM, UNSPECIFIED (5) Pedal edema Code(s): R60.0 - LOCALIZED EDEMA (6) Prostate enlargement Code(s): N40.0 - BENIGN PROSTATIC HYPERPLASIA WITHOUT LOWER URINRY TRACT SYMP (7) Proteinuria Code(s): R80.9 - PROTEINURIA, UNSPECIFIED (8) Renal mass Code(s): N28.89 - OTHER SPECIFIED DISORDERS OF KIDNEY AND URETER (9) CIARA (acute kidney injury) Code(s): N17.9 - ACUTE KIDNEY FAILURE, UNSPECIFIED (10) CHF exacerbation Code(s): I50.9 - HEART FAILURE, UNSPECIFIED Qualifiers: Heart failure type: unspecified Qualified Code(s): I50.9 - Heart failure, unspecified (11) Fluid overload Code(s): E87.70 - FLUID OVERLOAD, UNSPECIFIED Qualifiers: Hypervolemia type: other Qualified Code(s): E87.79 - Other fluid overload This patient is new to me today: No Emergency Visit: Yes ED Registration Date: 05/21/19 Care time: The patient presented to the Emergency Department on the above date and was hospitalized for further evaluation of their emergent condition. Critical Care patient: No - Discharge Referral Referred to [facility] No
== END 2019-05-26 16:57 | disposition home or self-care (01) | DRG 291 ==
LOC: JER 08:30 → JERBED 09:39 → J4W 15:48
PROVIDERS: ATTEND Internal Medicine
DX: I13.0 Hypertensive heart and chronic kidney disease with heart failure and stage 1 through stage 4 chronic kidney disease, or unspecified chronic kidney disease (principal); I50.23 Acute on chronic systolic (congestive) heart failure; N17.9 Acute kidney failure, unspecified; R18.8 Other ascites; J90 Pleural effusion, not elsewhere classified; I47.2 Ventricular tachycardia; E78.5 Hyperlipidemia, unspecified; R06.02 Shortness of breath; N50.89 Other specified disorders of the male genital organs; E03.9 Hypothyroidism, unspecified; N28.89 Other specified disorders of kidney and ureter; R80.9 Proteinuria, unspecified; E87.79 Other fluid overload; R60.0 Localized edema; N40.0 Benign prostatic hyperplasia without lower urinary tract symptoms; E83.42 Hypomagnesemia; E11.22 Type 2 diabetes mellitus with diabetic chronic kidney disease; N18.3 Chronic kidney disease, stage 3 (moderate); R16.0 Hepatomegaly, not elsewhere classified; E66.9 Obesity, unspecified; Z68.35 Body mass index [BMI] 35.0-35.9, adult
CPT/HCPCS: 36415; 71045-TC-FY; 71046-TC-FY; 76705-TC; 76775-TC; 76856-TC; 76870-TC; 78452-TC; 80048; 80053; 81003; 82248; 82436; 82550; 82553; 82570; 82962; 83036; 83520; 83735; 83880; 84100; 84133; 84155; 84156; 84165; 84300; 84484; 84540; 85025; 85610; 85730; 86038; 86225; 86256; 86704; 86706; 86707; 86708; 86709; 87086; 87205; 87340; 87522; 93005; 93010; 93017; 93306-TC; 93970-TC; 97116-GP; 97161-GP; 99283-25; 99284-25; A9502; J1644; J2785

== ENCOUNTER 2021-11-16 10:15 | Inpatient (IN) | payer MEDICARE, OTHER ==
[2021-11-16 11:52] LABS: BASO % 1.2 % (0-2.0); EOS % 4.7 % (0-4.5); HEMATOCRIT 39.7 % (35.4-49); LYMPH % 28.3 % (8-40); MCH 29.4 pg (25.7-33.7); MCHC 32.8 g/dl (32.0-35.9); MEAN CELL VOLUME 89.5 fl (80-96); MEAN PLT VOLUME 9.5 fl (7.5-11.1); MONO % 9.2 % (3.8-10.2); NEUT % 56.6 % (42.8-82.8); PLATELET COUNT 217 10^3/uL (134-434); RBC 4.44 M/mm3 (4.00-5.60); WHITE BLOOD COUNT 6.6 K/mm3 (4.0-10.0)
[2021-11-16 12:08] LABS: MAGNESIUM 2.1 mg/dL (1.8-2.4)
[2021-11-16 12:11] LABS: CALCIUM 9.1 mg/dL (8.5-10.1)
[2021-11-16 12:12] LABS: ALBUMIN 3.3 g/dl (3.4-5.0); BLOOD UREA NITROGEN 41.1 mg/dL (7-18)
[2021-11-16 12:15] LABS: CREATININE 2.1 mg/dL (0.55-1.3)
[2021-11-16 12:16] LABS: N-TERMINAL BNP 1176.9 pg/ml (5-125)
[2021-11-16 12:16] LABS: TOT PROT 7.5 g/dl (6.4-8.2)
[2021-11-16 12:17] LABS: BILIRUBIN,TOTAL 0.4 mg/dL (0.2-1)
[2021-11-16] MEDS: INSULIN SLIDING SCALE (NOVOLOG) 1 VIAL SQ SCH ×2 (17:19→21:13)
[2021-11-16] MEDS: HEPARIN NA (PORCINE) 5,000 UNITS/ML 1ML VIAL SQ SCH (17:20)
[2021-11-16] MEDS: FUROSEMIDE 40 MG/4 ML INJECTABLE VIAL IVPUSH SCH (17:20)
[2021-11-16] MEDS ORDERED: FUROSEMIDE 40 MG/4 ML INJECTABLE VIAL ONE (17:28)
[2021-11-16] MEDS ORDERED: HEPARIN NA (PORCINE) 5,000 UNITS/ML 1ML VIAL ONE (17:28)
[2021-11-16] MEDS ORDERED: CARVEDILOL 6.25 MG TABLET (FP) PO SCH (22:00)
[2021-11-17] MEDS: HEPARIN NA (PORCINE) 5,000 UNITS/ML 1ML VIAL SQ SCH (03:30)
[2021-11-17] MEDS: INSULIN SLIDING SCALE (NOVOLOG) 1 VIAL SQ SCH ×4 (06:00→21:23)
[2021-11-17] MEDS: LEVOTHYROXINE NA 25 MCG TABLET (FP) PO SCH (06:08)
[2021-11-17 07:48] LABS: BASO % 0.8 % (0-2.0); EOS % 5.1 % (0-4.5); HEMATOCRIT 39.6 % (35.4-49); HEMOGLOBIN 13.1 GM/dL (11.7-16.9); LYMPH % 24.9 % (8-40); MCH 29.5 pg (25.7-33.7); MEAN CELL VOLUME 89.3 fl (80-96); MEAN PLT VOLUME 9.8 fl (7.5-11.1); MONO % 7.5 % (3.8-10.2); NEUT % 61.7 % (42.8-82.8); PLATELET COUNT 212 10^3/uL (134-434); RBC 4.43 M/mm3 (4.00-5.60); RDW 14.1 % (11.9-15.9); WHITE BLOOD COUNT 7.1 K/mm3 (4.0-10.0)
[2021-11-17 08:13] LABS: BLOOD UREA NITROGEN 38.1 mg/dL (7-18)
[2021-11-17 08:14] LABS: ALBUMIN 3.1 g/dl (3.4-5.0)
[2021-11-17 08:16] LABS: CREATININE 1.8 mg/dL (0.55-1.3); PHOSPHOROUS 3.4 mg/dL (2.5-4.9)
[2021-11-17 08:18] LABS: BILIRUBIN,TOTAL 0.7 mg/dL (0.2-1)
[2021-11-17] MEDS ORDERED: ENALAPRIL MALEATE 10 MG TABLET PO SCH (10:00)
[2021-11-17] MEDS ORDERED: ASPIRIN 81 MG CHEWABLE TABLETS PO SCH (10:00)
[2021-11-17] MEDS: APIXABAN 5 MG TABLET PO SCH ×3 (10:27→21:22)
[2021-11-17] MEDS: CARVEDILOL 6.25 MG TABLET (FP) PO SCH ×2 (10:27→21:22)
[2021-11-17] MEDS: FUROSEMIDE 40 MG/4 ML INJECTABLE VIAL IVPUSH SCH (10:28)
[2021-11-17 14:01] VITALS: BMI 33.2
[2021-11-18] MEDS: LEVOTHYROXINE NA 25 MCG TABLET (FP) PO SCH (06:24)
[2021-11-18] MEDS: INSULIN SLIDING SCALE (NOVOLOG) 1 VIAL SQ SCH ×4 (06:25→21:28)
[2021-11-18] MEDS: FUROSEMIDE 40 MG TABLET (FP) PO SCH ×2 (06:25→13:59)
[2021-11-18 07:46] LABS: BASO % 0.8 % (0-2.0); EOS % 5.1 % (0-4.5); HEMATOCRIT 42.1 % (35.4-49); HEMOGLOBIN 13.9 GM/dL (11.7-16.9); LYMPH % 25.7 % (8-40); MCH 29.5 pg (25.7-33.7); MCHC 33.1 g/dl (32.0-35.9); MEAN CELL VOLUME 89.2 fl (80-96); MEAN PLT VOLUME 9.7 fl (7.5-11.1); NEUT % 60.4 % (42.8-82.8); PLATELET COUNT 231 10^3/uL (134-434); RBC 4.72 M/mm3 (4.00-5.60); RDW 14.3 % (11.9-15.9); WHITE BLOOD COUNT 6.7 K/mm3 (4.0-10.0)
[2021-11-18 08:06] LABS: CALCIUM 9.2 mg/dL (8.5-10.1)
[2021-11-18 08:10] LABS: CREATININE 1.8 mg/dL (0.55-1.3); PHOSPHOROUS 3.9 mg/dL (2.5-4.9)
[2021-11-18 08:33] LABS: ACTIVATED PTT 32.9 SECONDS (25.2-36.5); INR 1.06 (0.83-1.09); PROTHROMBIN TIME (PATIENT) 12.2 SEC (9.7-13.0)
[2021-11-18] MEDS: CARVEDILOL 6.25 MG TABLET (FP) PO SCH ×2 (09:44→21:28)
[2021-11-18] MEDS: APIXABAN 5 MG TABLET PO SCH ×2 (09:45→21:27)
[2021-11-19] MEDS: LEVOTHYROXINE NA 25 MCG TABLET (FP) PO SCH (06:02)
[2021-11-19] MEDS: INSULIN SLIDING SCALE (NOVOLOG) 1 VIAL SQ SCH ×4 (06:02→21:42)
[2021-11-19] MEDS: FUROSEMIDE 40 MG TABLET (FP) PO SCH ×2 (06:02→13:37)
[2021-11-19 08:12] LABS: BASO % 0.9 % (0-2.0); EOS % 5.2 % (0-4.5); HEMATOCRIT 39.6 % (35.4-49); HEMOGLOBIN 13.1 GM/dL (11.7-16.9); LYMPH % 26.8 % (8-40); MCH 29.4 pg (25.7-33.7); MCHC 33.1 g/dl (32.0-35.9); MEAN PLT VOLUME 9.7 fl (7.5-11.1); MONO % 7.8 % (3.8-10.2); NEUT % 59.3 % (42.8-82.8); PLATELET COUNT 211 10^3/uL (134-434); RBC 4.45 M/mm3 (4.00-5.60); RDW 14.2 % (11.9-15.9); WHITE BLOOD COUNT 7.2 K/mm3 (4.0-10.0)
[2021-11-19 08:27] LABS: CALCIUM 9.1 mg/dL (8.5-10.1)
[2021-11-19 08:28] LABS: BLOOD UREA NITROGEN 45.9 mg/dL (7-18)
[2021-11-19] MEDS: CARVEDILOL 6.25 MG TABLET (FP) PO SCH ×2 (10:03→21:39)
[2021-11-19] MEDS: APIXABAN 5 MG TABLET PO SCH ×2 (10:04→21:39)
[2021-11-20] MEDS: FUROSEMIDE 40 MG TABLET (FP) PO SCH ×2 (06:00→14:14)
[2021-11-20] MEDS: LEVOTHYROXINE NA 25 MCG TABLET (FP) PO SCH (06:00)
[2021-11-20] MEDS: INSULIN SLIDING SCALE (NOVOLOG) 1 VIAL SQ SCH ×2 (06:00→11:39)
[2021-11-20 06:27] VITALS: PULSE 90
[2021-11-20 07:58] LABS: EOS % 5.3 % (0-4.5); HEMATOCRIT 42.4 % (35.4-49); HEMOGLOBIN 14.2 GM/dL (11.7-16.9); LYMPH % 30.5 % (8-40); MCH 29.8 pg (25.7-33.7); MCHC 33.4 g/dl (32.0-35.9); MEAN CELL VOLUME 89.2 fl (80-96); MEAN PLT VOLUME 9.7 fl (7.5-11.1); MONO % 8.8 % (3.8-10.2); NEUT % 54.4 % (42.8-82.8); PLATELET COUNT 221 10^3/uL (134-434); RBC 4.76 M/mm3 (4.00-5.60); RDW 14.2 % (11.9-15.9); WHITE BLOOD COUNT 6.5 K/mm3 (4.0-10.0)
[2021-11-20] MEDS ORDERED: CARVEDILOL 25 MG TABLET (FP) PO SCH (08:15)
[2021-11-20 08:23] LABS: BLOOD UREA NITROGEN 54.4 mg/dL (7-18)
[2021-11-20 08:25] LABS: CALCIUM 9.5 mg/dL (8.5-10.1)
[2021-11-20 08:26] LABS: CREATININE 2.2 mg/dL (0.55-1.3)
[2021-11-20] MEDS: APIXABAN 5 MG TABLET PO SCH (09:16)
[2021-11-20 10:13] VITALS: BP 129/67; TEMP 98.7
== END 2021-11-20 15:00 | disposition home or self-care (01) | DRG 309 ==
LOC: JER 10:15 → JERBED 14:13 → J4W 20:40
PROVIDERS: ADMIT Internal Medicine; ATTEND Internal Medicine
DX: I48.92 Unspecified atrial flutter (principal); I13.0 Hypertensive heart and chronic kidney disease with heart failure and stage 1 through stage 4 chronic kidney disease, or unspecified chronic kidney disease; I50.22 Chronic systolic (congestive) heart failure; E11.9 Type 2 diabetes mellitus without complications; E78.5 Hyperlipidemia, unspecified; E03.9 Hypothyroidism, unspecified; R50.9 Fever, unspecified; E11.22 Type 2 diabetes mellitus with diabetic chronic kidney disease; N18.9 Chronic kidney disease, unspecified; I45.9 Conduction disorder, unspecified; N28.89 Other specified disorders of kidney and ureter; I25.119 Atherosclerotic heart disease of native coronary artery with unspecified angina pectoris; I45.10 Unspecified right bundle-branch block; M71.22 Synovial cyst of popliteal space [Baker], left knee
CPT/HCPCS: 36415; 71045-TC-FY; 80048; 80053; 82272; 82962; 83735; 83880; 84100; 84155; 84165; 84439; 84443; 84484; 85025; 85610; 85730; 93005; 93010; 93306-TC; 93970-TC; 99285-25; C9803-CS; J1644; U0003; U0005

== ENCOUNTER 2022-09-19 08:28 | Day surgery (SDC) | payer MEDICARE ==
[2022-09-11 17:00] VITALS: BMI 32.5
[2022-09-19] MEDS: TROPICAMIDE 1% OPHTH SOLN 15 ML BOTTLE ONE ×3 (09:35→09:45)
[2022-09-19] MEDS: PHENYLEPHRINE 2.5% OPTHALMIC DROP 2ML BOTTLE ONE ×3 (09:35→09:45)
[2022-09-19] MEDS: CIPROFLOXACIN 0.3% EYE DROPS 5 ML BOTTLE ONE ×3 (09:35→09:45)
[2022-09-19] MEDS: CYCLOPENTOLATE 2% OPHTH SOLN 2 ML BOTTLE ONE ×3 (09:35→09:45)
[2022-09-19 09:42] VITALS: TEMP 98.3
[2022-09-19] MEDS ORDERED: BSS (NA/CA/MG/K) BALANCED SALT SOLUTION OPHTH SOLN 15 ML BOTTLE ONE (10:57)
[2022-09-19] MEDS ORDERED: NEO/POLYMYX B SULF/DEXAMETH OPHTHALMIC 5ML BOTTLE ONE (10:57)
[2022-09-19] MEDS ORDERED: CARBACHOL 0.01% INTRA-OCULAR 1.5 ML VIAL ONE (10:57)
[2022-09-19] MEDS ORDERED: MIDAZOLAM HCL 2 MG/2 ML SINGLE DOSE VIAL ONE (11:37)
[2022-09-19 12:09] VITALS: RESP 18
[2022-09-19 12:46] VITALS: BP 149/85; PULSE 58
== END 2022-09-19 12:40 | disposition home or self-care (01) ==
LOC: FASU 08:28
PROVIDERS: ATTEND Ophthalmology
PROC: 08RJ3JZ Replacement of Right Lens with Synthetic Substitute, Percutaneous Approach (ICD-10-PCS; principal; 2022-09-19 11:46)
DX: H26.8 Other specified cataract (principal)
CPT/HCPCS: 66984; V2632; 82962

== ENCOUNTER 2022-09-26 16:26 | Inpatient (IN) | payer MEDICARE, OTHER ==
[2022-09-26 16:35] VITALS: BMI 25.7
[2022-09-26 17:50] LABS: BASO % 1.1 % (0-2.0); EOS % 1.7 % (0-4.5); HEMOGLOBIN 13.8 GM/dL (11.7-16.9); LYMPH % 9.2 % (8-40); MCH 28.8 pg (25.7-33.7); MCHC 32.9 g/dl (32.0-35.9); MEAN CELL VOLUME 87.7 fl (80-96); MEAN PLT VOLUME 9.5 fl (7.5-11.1); MONO % 4.5 % (3.8-10.2); NEUT % 83.5 % (42.8-82.8); PLATELET COUNT 241 10^3/uL (134-434); RBC 4.79 M/mm3 (4.00-5.60); WHITE BLOOD COUNT 9.7 K/mm3 (4.0-10.0)
[2022-09-26 17:58] LABS: CHLORIDE 103 mmol/L (98-107); SODIUM 122 mmol/L (136-145)
[2022-09-26 17:59] LABS: CALCIUM 8.6 mg/dL (8.5-10.1)
[2022-09-26 18:00] LABS: ALBUMIN 2.7 g/dl (3.4-5.0); CO2 23 mmol/L (21-32)
[2022-09-26 18:01] LABS: BLOOD UREA NITROGEN 22.8 mg/dL (7-18); GLUCOSE,RANDOM 165 mg/dL (74-106)
[2022-09-26 18:03] LABS: CREATININE 1.9 mg/dL (0.55-1.3)
[2022-09-26] MEDS ORDERED: ASPIRIN 81 MG CHEWABLE TABLETS PO ONE (18:04)
[2022-09-26 18:05] LABS: CHOLESTEROL 102 mg/dL (50-200); TOT PROT 9.3 g/dl (6.4-8.2)
[2022-09-26 18:06] LABS: LDL CHOLESTEROL (ONLY SJRH) 83 mg/dL (5-100)
[2022-09-26 18:07] LABS: HDL CHOLESTEROL 39 mg/dL (40-60)
[2022-09-26] MEDS ORDERED: ASPIRIN 81 MG CHEWABLE TABLETS ONE (18:15)
[2022-09-26 18:18] LABS: ANION GAP -4 MMOL/L (8-16); POTASSIUM > 10.0 mmol/L (3.5-5.1)
[2022-09-26] MEDS ORDERED: LACTATED RINGERS SOLUTION 1000 ML INFUS.BAG IV ONE (18:45)
[2022-09-26 19:41] LABS: POTASSIUM 4.1 mmol/L (3.5-5.1)
[2022-09-26 19:43] LABS: ALBUMIN 3.1 g/dl (3.4-5.0); BLOOD UREA NITROGEN 22.3 mg/dL (7-18); CALCIUM 8.9 mg/dL (8.5-10.1)
[2022-09-26 19:47] LABS: CREATININE 1.7 mg/dL (0.55-1.3)
[2022-09-26 19:55] LABS: TOT PROT 7.2 g/dl (6.4-8.2)
[2022-09-26 20:15] LABS: INR 1.21 (0.83-1.09)
[2022-09-26 20:18] LABS: ACTIVATED PTT 28.7 SECONDS (25.2-36.5)
[2022-09-27] MEDS ORDERED: MAG HYDROX/AL HYDROX/SIMETH 30 ML UNIT-DOSE CUP PO PRN (00:53)
[2022-09-27] MEDS ORDERED: SODIUM CHLORIDE 1,000 ML IV SCH (02:15)
[2022-09-27] MEDS ORDERED: LACTATED RINGERS SOLUTION 1,000 ML/1,000 ML INFUS.BAG IV SCH (02:15)
[2022-09-27] MEDS: INSULIN SLIDING SCALE (NOVOLOG) 1 VIAL SQ SCH ×3 (06:44→17:29)
[2022-09-27 07:32] LABS: BASO % 0.8 % (0-2.0); EOS % 2.4 % (0-4.5); LYMPH % 12.9 % (8-40); MCH 29.5 pg (25.7-33.7); MCHC 34.3 g/dl (32.0-35.9); MEAN CELL VOLUME 86.1 fl (80-96); MEAN PLT VOLUME 9.6 fl (7.5-11.1); MONO % 7.9 % (3.8-10.2); PLATELET COUNT 212 10^3/uL (134-434); RBC 4.41 M/mm3 (4.00-5.60); RDW 15.4 % (11.9-15.9); WHITE BLOOD COUNT 10.2 K/mm3 (4.0-10.0)
[2022-09-27 07:42] LABS: POTASSIUM 4.1 mmol/L (3.5-5.1)
[2022-09-27 07:51] LABS: ALBUMIN 2.9 g/dl (3.4-5.0); CALCIUM 8.9 mg/dL (8.5-10.1)
[2022-09-27 07:52] LABS: BLOOD UREA NITROGEN 21.5 mg/dL (7-18)
[2022-09-27 07:55] LABS: CREATININE 1.5 mg/dL (0.55-1.3)
[2022-09-27 07:56] LABS: TOT PROT 6.6 g/dl (6.4-8.2)
[2022-09-27 08:15] LABS: BILIRUBIN,TOTAL 1.1 mg/dL (0.2-1); MAGNESIUM 1.5 mg/dL (1.8-2.4); PHOSPHOROUS 2.7 mg/dL (2.5-4.9)
[2022-09-27] MEDS ORDERED: ASPIRIN 81 MG CHEWABLE TABLETS PO SCH (10:00)
[2022-09-27] MEDS ORDERED: HEPARIN NA (PORCINE) 5,000 UNITS/ML 1ML VIAL SQ SCH (10:00)
[2022-09-27] MEDS: APIXABAN 5 MG TABLET PO SCH ×2 (10:35→21:39)
[2022-09-27] MEDS ORDERED: LOSARTAN POTASSIUM 50 MG TABLET PO SCH (10:45)
[2022-09-27] MEDS ORDERED: MAGNESIUM SULF 50% (8.12 MEQ/2 ML-1 GM VIAL) IVPB ONE (11:00)
[2022-09-27] MEDS: CARVEDILOL 12.5 MG TABLET (FP) PO SCH ×2 (11:01→21:39)
[2022-09-27] MEDS: FUROSEMIDE 40 MG TABLET (FP) PO SCH ×2 (11:01→21:39)
[2022-09-27 11:21] LABS: EPI CELLS 6 /uL (0-25.1); HYALINE CASTS 0 /uL (0-3.1); PH,URINE 6.5 (5.0-8.0); URINE APPEARANCE CLEAR; URINE BACTERIA 4 /uL (0-1359); URINE BILIRUBIN NEGATIVE (NEGATIVE); URINE COLOR YELLOW; URINE GLUCOSE (UA) NEGATIVE (NEGATIVE); URINE KETONE NEGATIVE (NEGATIVE); URINE LEUK ESTERASE NEGATIVE (NEGATIVE); URINE NITRITE NEGATIVE (NEGATIVE); URINE PROTEIN 4+ (NEGATIVE); URINE RBC 18 /uL (0-23.9); URINE UROBILINOGEN 0.2 mg/dL (0.2-1.0); URINE WBC 3 /uL (0-25.8)
[2022-09-27] MEDS ORDERED: INSULIN (NOVOLOG) ASPART 100 UNITS/ML 10ML VIAL ONE (11:41)
[2022-09-27] MEDS ORDERED: LOSARTAN POTASSIUM 50 MG TABLET PO ONE (17:16)
[2022-09-27] MEDS: ATORVASTATIN CA 40 MG TABLET (FP) PO SCH (21:40)
[2022-09-27] MEDS: INSULIN (LEVEMIR) 100 UNITS/ML UNITS SQ SCH (21:42)
[2022-09-28] MEDS: INSULIN SLIDING SCALE (NOVOLOG) 1 VIAL SQ SCH ×3 (06:00→17:42)
[2022-09-28 07:17] LABS: HEMATOCRIT 38.9 % (35.4-49); HEMOGLOBIN 13.1 GM/dL (11.7-16.9); MCH 29.2 pg (25.7-33.7); MCHC 33.7 g/dl (32.0-35.9); MEAN CELL VOLUME 86.5 fl (80-96); MEAN PLT VOLUME 9.7 fl (7.5-11.1); PLATELET COUNT 221 10^3/uL (134-434); RDW 15.5 % (11.9-15.9); WHITE BLOOD COUNT 11.1 K/mm3 (4.0-10.0)
[2022-09-28 07:39] LABS: POTASSIUM 4.5 mmol/L (3.5-5.1)
[2022-09-28 07:53] LABS: PHOSPHOROUS 3.4 mg/dL (2.5-4.9)
[2022-09-28 07:54] LABS: BILIRUBIN,TOTAL 1.2 mg/dL (0.2-1)
[2022-09-28 07:58] LABS: BLOOD UREA NITROGEN 23.6 mg/dL (7-18)
[2022-09-28 08:00] LABS: CREATININE 1.7 mg/dL (0.55-1.3); MAGNESIUM 1.9 mg/dL (1.8-2.4)
[2022-09-28] MEDS: LOSARTAN POTASSIUM 25 MG TABLET PO SCH (09:28)
[2022-09-28] MEDS: FUROSEMIDE 40 MG TABLET (FP) PO SCH ×2 (09:28→21:58)
[2022-09-28] MEDS: APIXABAN 5 MG TABLET PO SCH ×2 (09:28→21:58)
[2022-09-28] MEDS: CARVEDILOL 12.5 MG TABLET (FP) PO SCH ×2 (09:28→21:58)
[2022-09-28] MEDS: FINERENONE 10 MG PO SCH (09:29)
[2022-09-28] MEDS: ASPIRIN COATED 81 MG TABLET.EC PO SCH (09:32)
[2022-09-28] MEDS ORDERED: LORazepam 2 MG/ML SDV VIAL IVPUSH ONE ×2 (14:22→17:00)
[2022-09-28] MEDS: ATORVASTATIN CA 40 MG TABLET (FP) PO SCH (21:58)
[2022-09-28] MEDS: INSULIN (LEVEMIR) 100 UNITS/ML UNITS SQ SCH (21:59)
[2022-09-29] MEDS: INSULIN SLIDING SCALE (NOVOLOG) 1 VIAL SQ SCH ×3 (06:09→16:42)
[2022-09-29 07:25] LABS: HEMATOCRIT 37.1 % (35.4-49); HEMOGLOBIN 12.7 GM/dL (11.7-16.9); MCH 29.5 pg (25.7-33.7); MCHC 34.4 g/dl (32.0-35.9); MEAN CELL VOLUME 85.9 fl (80-96); MEAN PLT VOLUME 9.2 fl (7.5-11.1); PLATELET COUNT 209 10^3/uL (134-434); RBC 4.32 M/mm3 (4.00-5.60); RDW 15.3 % (11.9-15.9); WHITE BLOOD COUNT 9.5 K/mm3 (4.0-10.0)
[2022-09-29 07:46] LABS: POTASSIUM 4.1 mmol/L (3.5-5.1)
[2022-09-29 07:51] LABS: CALCIUM 8.6 mg/dL (8.5-10.1)
[2022-09-29 07:52] LABS: ALBUMIN 2.8 g/dl (3.4-5.0); BLOOD UREA NITROGEN 34.1 mg/dL (7-18); MAGNESIUM 1.8 mg/dL (1.8-2.4)
[2022-09-29 07:54] LABS: PHOSPHOROUS 3.9 mg/dL (2.5-4.9)
[2022-09-29 07:56] LABS: BILIRUBIN,TOTAL 0.8 mg/dL (0.2-1); TOT PROT 6.5 g/dl (6.4-8.2)
[2022-09-29] MEDS: LOSARTAN POTASSIUM 25 MG TABLET PO SCH (09:12)
[2022-09-29] MEDS: ASPIRIN COATED 81 MG TABLET.EC PO SCH (09:13)
[2022-09-29] MEDS: CARVEDILOL 12.5 MG TABLET (FP) PO SCH (09:13)
[2022-09-29] MEDS: APIXABAN 5 MG TABLET PO SCH (09:13)
[2022-09-29] MEDS: FUROSEMIDE 40 MG TABLET (FP) PO SCH (09:13)
[2022-09-29] MEDS: FINERENONE 10 MG PO SCH (09:14)
[2022-09-29 15:55] VITALS: BP 128/78; PULSE 72; RESP 18; TEMP 98.2
== END 2022-09-29 18:40 | disposition home or self-care (01) | DRG 65 ==
LOC: JER 16:26 → JERBED 18:11 → J4W 09-27 00:39
PROVIDERS: ADMIT Internal Medicine; ATTEND Internal Medicine
DX: I63.9 Cerebral infarction, unspecified (principal); I13.0 Hypertensive heart and chronic kidney disease with heart failure and stage 1 through stage 4 chronic kidney disease, or unspecified chronic kidney disease; I48.92 Unspecified atrial flutter; I50.32 Chronic diastolic (congestive) heart failure; I48.20 Chronic atrial fibrillation, unspecified; R42 Dizziness and giddiness; N18.9 Chronic kidney disease, unspecified; R26.81 Unsteadiness on feet; R77.8 Other specified abnormalities of plasma proteins; R29.703 NIHSS score 3; E11.22 Type 2 diabetes mellitus with diabetic chronic kidney disease; E78.5 Hyperlipidemia, unspecified
CPT/HCPCS: 0241U-QW; 36415; 70450-TC; 70544-TC; 70547-TC; 70551-TC; 76775-TC; 80053; 80061; 81003; 82550; 82570; 82962; 83036; 83735; 84100; 84156; 84443; 84484; 84540; 85025; 85027; 85610; 85730; 93005; 93010; 93306-TC; 93880-TC; 97116-GP; 97161-GP; 99291